=== PATIENT | female | born 1955 | race Caucasian/White ===

== ENCOUNTER 2017-03-05 12:05 | Observation (INO) | payer BC, OTHER ==
--- NOTE | 2017-03-05 12:41 | ER Document Report ---
ED Fever - General Chief Complaint: Fever Stated Complaint: FEVER Time Seen by Provider: 03/05/17 12:24 Notes: The patient is a 61-year-old female, past medical history hypertension, diabetes , presents from the urgent care center after she had a fever of 102. She was given 600 mg Motrin at the . She is complaining of mild dry cough, diffuse muscle aches and joint pain. She had a negative flu swab at the urgent care center and was sent to the ER for further evaluation due to her age. She denies shortness of breath, nausea, vomiting, abdominal pain, chest pain, urinary symptoms, rash, headache, neck stiffness or recent travel. TRAVEL OUTSIDE OF THE [place] IN LAST 30 DAYS: No - Related Data Allergies/Adverse Reactions: amoxicillin trihydrate [From Augmentin] Allergy (Intermediate, Verified 09:17) severe vaginal yeast infection zanamivir [From Relenza Diskhaler] Allergy (Intermediate, Verified 06/14/16 09: 17) breathing difficulty Potassium Clavulanate * [From Augmentin] Allergy (Verified 06/14/16 09:17) adhesive sensitivity Adverse Reaction (Uncoded 10/07/15 00:45) redness Past Medical History - General Information source: Patient - Social History Smoking Status: Unknown if Ever Smoked Family History: Reviewed & Not Pertinent, DM, Hypertension Patient has suicidal ideation: No Patient has homicidal ideation: No - Past Medical History Cardiac Medical History: Reports: Hx Hypercholesterolemia, Hx Hypertension Denies: Hx Atrial Fibrillation, Hx Congestive Heart Failure, Hx Coronary Artery Disease, Hx Heart Attack, Hx Peripheral Vascular Disease, Hx Pulmonary Embolism, Hx Heart Murmur Pulmonary Medical History: Reports: Hx Asthma, Hx Bronchitis, Hx Pneumonia Denies: Hx COPD, Hx Respiratory Failure, Hx Sleep Apnea, Hx Tuberculosis Neurological Medical History: Denies: Hx Cerebrovascular Accident, Hx Seizures Endocrine Medical History: Reports: Hx Diabetes Mellitus Type 2, Hx Hypothyroidism. Denies: Hx Graves' Disease, Hx Hyperthyroidism Renal/ Medical History: Reports: Hx Ovarian Cysts. Denies: Hx End Stage Renal Disease, Hx Kidney Stones, Hx Peritoneal Dialysis, Hx Pelvic Inflammatory Disease Malignancy Medical History: Denies: Hx Breast Cancer, Hx Cervical Cancer, Hx Lung Cancer, Hx Ovarian Cancer GI Medical History: Reports: Hx Gastroesophageal Reflux Disease. Denies: Hx Crohn's Disease, Hx Hepatitis, Hx Hiatal Hernia, Hx Irritable Bowel, Hx Liver Failure, Hx Ulcer Musculoskeltal Medical History: Denies Hx Arthritis, Denies Hx Fibromyalgia, Denies Hx Muscular Dystrophy Psychiatric Medical History: Denies: Hx Depression Traumatic Medical History: Reports: Hx Fractures - R. toe while running; L. shoulder 2010 Infectious Medical History: Denies: Hx Hepatitis Past Surgical History: Reports: Hx Bowel Surgery - Colon resection in 2006, Hx Hysterectomy, Hx Tonsillectomy, Hx Tubal Ligation. Denies: Hx Section , Hx Cholecystectomy, Hx Colostomy, Hx Gastric Bypass Surgery, Hx Herniorrhaphy , Hx Mastectomy, Hx Open Heart Surgery, Hx Pacemaker - Immunizations Hx Diphtheria, Pertussis, Tetanus Vaccination: No Hx Pneumococcal Vaccination: 09/02/08 Review of Systems - Review of Systems Notes: REVIEW OF SYSTEMS: CONSTITUTIONAL: +fevers, -chills EENT: -eye pain, -difficulty swallowing, -nasal congestion CARDIOVASCULAR:-chest pain, -syncope. RESPIRATORY: +cough, -SOB GASTROINTESTINAL: -abdominal pain, -nausea, -vomiting, -diarrhea GENITOURINARY: -dysuria, -hematuria MUSCULOSKELETAL: +myalgias and arthralgias, -back pain, -neck pain SKIN: -rash or skin lesions. HEMATOLOGIC: -easy bruising or bleeding. LYMPHATIC: -swollen, enlarged glands. NEUROLOGICAL: -altered mental status or loss of consciousness, -headache, - neurologic symptoms PSYCHIATRIC: -anxiety, -depression. ALL OTHER SYSTEMS REVIEWED AND NEGATIVE. Physical Exam - Vital signs Vitals: Temp Pulse Resp BP Pulse Ox 98.9 F 119 H 16 113/72 95 03/05/17 12:10 03/05/17 12:10 03/05/17 12:10 03/05/17 12:10 03/05/17 12:10 - Notes Notes: PHYSICAL EXAMINATION: GENERAL: Well-appearing, well-nourished and in no acute distress. HEAD: Atraumatic, normocephalic. EYES: Pupils equal round and reactive to light, extraocular movements intact, sclera anicteric, conjunctiva are normal. ENT: nares patent, oropharynx clear without exudates. Moist mucous membranes. NECK: Normal range of motion, supple without lymphadenopathy LUNGS: No respiratory distress. Crackles in right upper lobe. HEART: Tachycardic, regular rhythm ABDOMEN: Soft, nontender, normoactive bowel sounds. No guarding, no rebound. No masses appreciated. EXTREMITIES: Normal range of motion, no pitting or edema. No cyanosis. NEUROLOGICAL: Cranial nerves grossly intact. Normal speech, normal gait. Normal sensory and motor exams. PSYCH: Normal mood, normal affect. SKIN: Warm, Dry, normal turgor, no rashes or lesions noted. Course - Re-evaluation Re-evalutation: 03/05/17 13:31 Pt with severe leukocytosis, tachycardia and fever. Pt's BP is normal and she is in no respiratory distress. No recent hospitalizations. Will treat her with azithromycin and Rocephin (no history of penicillin allergies) and admit for further evaluation and treatment. 03/05/17 15:[address] Pham and will admit patient as Inpatient to Telemetry. - Vital Signs Vital signs: Temp Pulse Resp BP Pulse Ox 98.9 F 94 18 126/77 H 99 03/05/17 12:10 03/05/17 15:22 03/05/17 15:22 03/05/17 15:22 03/05/17 15:22 - Laboratory Result Diagrams: 03/05/17 12:45 03/05/17 12:45 Laboratory results interpreted by me: 03/05/17 03/05/17 03/05/17 12:45 12:45 14:49 WBC 24.2 H RBC 5.33 H MCV 75 L MCH 23.4 L MCHC 31.4 L RDW 15.3 H Seg Neuts % (Manual) 83 H Lymphocytes % (Manual) 5 L Abs Neuts (Manual) 21.3 H Abs Monocytes (Manual) 1.7 H Sodium 136.1 L Glucose 144 H Lactic Acid 2.6 H AST 41 H Alkaline Phosphatase 145 H - Diagnostic Test Radiology reviewed: Image reviewed, Reports reviewed Radiology results interpreted by me: CXR: RUL pneumonia Discharge - Discharge Clinical Impression: CAP (community acquired pneumonia) Leukocytosis Qualifiers: Leukocytosis type: unspecified Qualified Code(s): D72.829 - Elevated white blood cell count, unspecified Condition: Stable Disposition: ADMITTED INPATIENT Admitting Provider: Annabelle Singh Unit Admitted: Telemetry Referrals: CHARY ANNE FNP-C [Primary Care Provider] - Follow up as needed
[2017-03-05 13:10] LABS: HEMATOCRIT 39.8 % (36.0-47.0); HEMOGLOBIN 12.5 g/dL (12.0-15.5); HGB HCT DIFFERENCE -2.3; MEAN CORPUSCULAR HEMOGLOBIN 23.4 pg (27.0-33.4); MEAN CORPUSCULAR HGB CONC 31.4 g/dL (32.0-36.0); MEAN CORPUSCULAR VOLUME 75 fl (80-97); RED BLOOD COUNT 5.33 10^6/uL (3.72-5.28); RED CELL DISTRIBUTION WIDTH 15.3 % (11.5-14.0); WHITE BLOOD COUNT 24.2 10^3/uL (4.0-10.5)
[2017-03-05 13:13] LABS: APPEARANCE,URINE CLEAR; BILIRUBIN,URINE NEGATIVE (NEGATIVE); GLUCOSE, URINE NEGATIVE (NEGATIVE); KETONES,URINE NEGATIVE (NEGATIVE); LEUKOCYTE ESTERASE,URINE NEGATIVE (NEGATIVE); NITRITE,URINE NEGATIVE (NEGATIVE); PROTEIN,URINE NEGATIVE (NEGATIVE); URINE SPECIFIC GRAVITY 1.016; UROBILINOGEN,URINE NEGATIVE mg/dL (<2.0)
[2017-03-05 13:30] LABS: BAND NEUTROPHILS % (MANUAL) 5 % (3-5); BASOPHILS % (MANUAL) 0 % (0-2); EOSINOPHILS % (MANUAL) 0 % (0-6); LYMPHOCYTES % (MANUAL) 5 % (13-45); TOTAL CELLS COUNTED 100
[2017-03-05 13:31] LABS: ANISOCYTOSIS SLIGHT; HYPOCHROMASIA SLIGHT; MICROCYTOSIS 1+; OVALOCYTES SLIGHT; POIKILOCYTOSIS SLIGHT; TOXIC GRANULATION SLIGHT; TOXIC VACUOLATION PRESENT
[2017-03-05 13:34] LABS: ALANINE AMINOTRANSFERASE 45 U/L (9-52); ALBUMIN 4.3 g/dL (3.5-5.0); ALKALINE PHOSPHATASE 145 U/L (38-126); ANION GAP 16 (5-19); ASPARTATE AMINO TRANSFERASE 41 U/L (14-36); BILIRUBIN,DIRECT 0.3 mg/dL (0.0-0.4); BILIRUBIN,TOTAL 0.8 mg/dL (0.2-1.3); BLOOD UREA NITROGEN 16 mg/dL (7-20); CALCIUM 9.8 mg/dL (8.4-10.2); CARBON DIOXIDE 22 mmol/L (22-30); CHLORIDE 98 mmol/L (98-107); CREATINE KINASE 63 U/L (30-135); CREATININE RESULT 0.76 mg/dL (0.52-1.25); GLUCOSE 144 mg/dL (75-110); POTASSIUM 4.1 mmol/L (3.6-5.0); SODIUM 136.1 mmol/L (137-145); TOTAL PROTEIN 7.7 g/dL (6.3-8.2)
--- NOTE | 2017-03-05 13:34 | RADIOLOGY REPORT (SQ) ---
EXAM DESCRIPTION: CHEST PA/LAT COMPLETED DATE/TIME: 03/05/2017 1:03 pm REASON FOR STUDY: fever COMPARISON: 07/16/2015. TECHNIQUE: Frontal and lateral radiographic views of the chest acquired. NUMBER OF VIEWS: Two view. LIMITATIONS: None. FINDINGS: LUNGS AND PLEURA: Patchy right upper lobe airspace disease. MEDIASTINUM AND HILAR STRUCTURES: Hiatal hernia. HEART AND VASCULAR STRUCTURES: Heart normal size. No evidence for failure. BONES: No acute findings. HARDWARE: None in the chest. OTHER: No other significant finding. IMPRESSION: Findings suggesting right upper lobe pneumonia. Hiatal hernia. TECHNICAL DOCUMENTATION: JOB ID: [id number] [employer]- All Rights Reserved
[2017-03-05] MEDS ORDERED: AZITHROMYCIN INJ 500 MG VIAL IV ONE (14:06)
[2017-03-05] MEDS ORDERED: CEFTRIAXONE 1 GM/D5W RTU 50 ML IV ONE (14:06)
[2017-03-05] MEDS: NORMAL SALINE 1000 ML 1,000 ML IV PRN ×2 (15:27→16:38)
[2017-03-05] MEDS ORDERED: ALBUTEROL SULFATE 0.083% NEB 2.5 MG/3 ML AMPUL NEB PRN (16:05)
[2017-03-05] MEDS ORDERED: NORMAL SALINE 1000 ML 1,000 ML IV PRN (16:05)
[2017-03-05] MEDS ORDERED: ACETAMINOPHEN 325 MG TABLET PO PRN (16:05)
[2017-03-05] MEDS ORDERED: ONDANSETRON HCL INJ/PF 4 MG/2 ML SDV IV PRN (16:05)
[2017-03-05] MEDS ORDERED: ONDANSETRON 4 MG TAB.RAPDIS PO PRN (16:05)
[2017-03-05] MEDS ORDERED: GLUCAGON,HUMAN RECOMB 1 MG INJ IM PRN (16:11)
[2017-03-05] MEDS ORDERED: INSULIN LISPRO 100 UNIT/ML 3 ML VIAL SUBCUT PRN (16:11)
[2017-03-05] MEDS ORDERED: DEXTROSE 50%-WATER 25 GM/50 ML DISP.SYRIN IV PRN ×2 (16:11)
[2017-03-05] MEDS ORDERED: DEXTROSE 40% GEL 15 GM TUBE PO PRN ×2 (16:11)
[2017-03-05] MEDS ORDERED: FLUTICASONE NASAL SPRAY 50 MCG/SPRY 120 SPRAY/16 GM NASL PRN (16:12)
--- NOTE | 2017-03-05 16:24 | PDOC H&P ---
History of Present Illness Admission Date/PCP: 03/05/17 16:04 RACHEL REID-C Patient complains of: Fever of 104 at home History of Present Illness: JEFERSON KU is a 61 year old female has a history of diabetes who woke up this morning from sleep and noticed that she was having fevers and chills. She checked her temperature and it was 104.2F. The patient reports having a slightly productive cough of white sputum but denies any shortness of breath. She denies any chest pain or palpitations. Denies any lower extremity edema. Denies any orthopnea or PND. The patient went to urgent care and was found to have a right upper lobe pneumonia has referred for admission. Patient has not had any hypoxia and her room air saturations are normal. The patient denies any recent travel. Denies travel outside denies states. The patient denies being around anyone who has been sick. Past Medical History Cardiac Medical History: Reports: Hyperlipidema, Hypertension Denies: Atrial Fibrillation, Congestive Heart Failure, Coronary Artery Disease, Myocardial Infarction, Peripheral Vascular Disease, Pulmonary Embolism , Heart Murmur Pulmonary Medical History: Reports: Asthma, Bronchitis, Pneumonia Denies: Chronic Obstructive Pulmonary Disease (COPD), Respiratory Failure, Sleep Apnea, Tuberculosis EENT Medical History: Reports: None Neurological Medical History: Reports: None Endocrine Medical History: Reports: Diabetes Mellitus Type 2, Hypothyroidism Denies: Hyperthyroidism Renal/ Medical History: Denies: End Stage Renal Disease Malignancy Medical History: Denies: Breast Cancer, Cervical Cancer, Lung Cancer, Ovarian Cancer GI Medical History: Reports: Gastroesophageal Reflux Disease, Other - diverticulitis requiring partial colectomy. Denies: Crohn's Disease, Hepatitis, Hiatal Hernia Musculoskeltal Medical History: Denies: Arthritis, Fibromyalgia Psychiatric Medical History: Denies: Depression Hematology: Denies: Anemia, Sickle Cell Disease Infectious Medical History: Reports: None Past Surgical History Past Surgical History: Reports: Cholecystectomy, Hysterectomy, Tonsillectomy, Tubal Ligation, Other - Partial colectomy secondary to diverticulitis Denies: Amputation, Section, Colostomy, Gastric Bypass Surgery, Herniorrhaphy, Mastectomy, Pacemaker Social History Information Source: Patient Lives with: Spouse/Significant other Smoking Status: Never Smoker Frequency of Alcohol Use: None Hx Recreational Drug Use: No Drugs: None Hx Prescription Drug Abuse: No - Advance Directive Resuscitation Status: Full Code Surrogate healthcare decision maker:: Her Family History Family History: DM, Hypertension Family History: Mother is 83 alive and has hypertension and hypothyroidism. Father is 87 and alive and has coronary artery disease. Parental Family History Reviewed: Yes Children Family History Reviewed: No Sibling(s) Family History Reviewed.: No Medication/Allergy Home Medications: Amlodipine Besylate [Norvasc 10 mg Tablet] 10 mg PO DAILY 03/05/17 Fluticasone Propionate [Flonase Nasal [place] 50 Mcg/[place] 16 gm] 2 sprays NASL DAILYP PRN 03/05/17 Fluticasone Propionate [Flovent HFA 220 mcg MDI] 1 puff IH BID 03/05/17 Levothyroxine Sodium [Synthroid 0.075 mg Tablet] 0.075 mg PO DAILY 03/05/17 Metformin HCl [Metformin HCl ER] 1,500 mg PO DAILY 03/05/17 Multivitamin [Daily Multiple Vitamin] 1 tab PO DAILY 03/05/17 Allergies/Adverse Reactions: amoxicillin trihydrate [From Augmentin] Allergy (Intermediate, Verified 09:17) severe vaginal yeast infection zanamivir [From Relenza Diskhaler] Allergy (Intermediate, Verified 06/14/16 09: 17) breathing difficulty Potassium Clavulanate * [From Augmentin] Allergy (Verified 06/14/16 09:17) adhesive sensitivity Adverse Reaction (Uncoded 10/07/15 00:45) redness Review of Systems Constitutional: PRESENT: chills, fever(s). ABSENT: headache(s), night sweats, weight gain, weight loss Eyes: ABSENT: visual disturbances Ears: ABSENT: hearing changes Cardiovascular: ABSENT: chest pain, dyspnea on exertion, edema, orthropnea, palpitations Respiratory: PRESENT: as per HPI Gastrointestinal: ABSENT: abdominal pain, constipation, diarrhea, hematemesis, hematochezia, nausea, vomiting Genitourinary: ABSENT: dysuria, hematuria Musculoskeletal: ABSENT: joint swelling Integumentary: ABSENT: rash, wounds Neurological: ABSENT: abnormal gait, abnormal speech, confusion, dizziness, focal weakness, syncope Psychiatric: ABSENT: anxiety, depression Endocrine: ABSENT: cold intolerance, heat intolerance, polydipsia, polyuria Hematologic/Lymphatic: ABSENT: easy bleeding, easy bruising Physical Exam Vital Signs: Temp Pulse Resp BP Pulse Ox 98.9 F 94 18 126/77 H 99 03/05/17 12:10 03/05/17 15:22 03/05/17 15:22 03/05/17 15:22 03/05/17 15:22 General appearance: PRESENT: no acute distress, well-developed, well-nourished Head exam: PRESENT: atraumatic, normocephalic Eye exam: PRESENT: conjunctiva pink, EOMI, PERRLA. ABSENT: scleral icterus Ear exam: PRESENT: normal external ear exam Mouth exam: PRESENT: dry mucosa Neck exam: ABSENT: carotid bruit, JVD, lymphadenopathy, thyromegaly Respiratory exam: PRESENT: rhonchi - Coarse rhonchi in the right upper lobe. ABSENT: rales, wheezes Cardiovascular exam: PRESENT: RRR. ABSENT: diastolic murmur, rubs, systolic murmur Pulses: PRESENT: normal dorsalis pedis pul Vascular exam: PRESENT: normal capillary refill GI/Abdominal exam: PRESENT: normal bowel sounds, soft. ABSENT: distended, guarding, mass, organolmegaly, rebound, tenderness Rectal exam: PRESENT: deferred Extremities exam: ABSENT: calf tenderness, clubbing, pedal edema Neurological exam: PRESENT: alert, awake, oriented to person, oriented to place , oriented to time, oriented to situation, CN II-XII grossly intact. ABSENT: motor sensory deficit Psychiatric exam: PRESENT: appropriate affect Skin exam: PRESENT: dry, intact, warm. ABSENT: cyanosis, rash Results Impressions: Chest X-Ray 03/05/17 12:38 IMPRESSION: Findings suggesting right upper lobe pneumonia. Hiatal hernia. Assessment & Plan - Diagnosis (1) CAP (community acquired pneumonia) Is this a current diagnosis for this admission?: YesPlan: The patient presented with a right upper lobe pneumonia as well as fever, leukocytosis. The patient is not tachypneic or hypoxic. Treat with Rocephin and Zithromax for community-acquired pneumonia. If she does well overnight she can probably be discharged home tomorrow. Because of that we will admit as an observation (2) Asthma Is this a current diagnosis for this admission?: YesPlan: No wheezing on exam. Will give nebulizers as needed (3) Hyperlipidemia Is this a current diagnosis for this admission?: YesPlan: Has been on Lipitor. (4) Hypertension Is this a current diagnosis for this admission?: YesPlan: Continue with Norvasc. (5) Hypothyroidism Is this a current diagnosis for this admission?: YesPlan: Continue with Synthroid. (6) Prediabetes Is this a current diagnosis for this admission?: YesPlan: We will hold her Glucophage and give sliding scale insulin. - Time Time Spent: 50 to 70 Minutes - Plan Summary Plan Summary: Admit as an observation and if she does well overnight we can hopefully discharge home tomorrow on oral antibiotics.
[2017-03-05] MEDS ORDERED: LEVOTHYROXINE SODIUM 0.075 MG TABLET PO ONE (17:00)
[2017-03-06 06:30] LABS: ANION GAP 8 (5-19); BLOOD UREA NITROGEN 8 mg/dL (7-20); CALCIUM 8.6 mg/dL (8.4-10.2); CARBON DIOXIDE 22 mmol/L (22-30); CHLORIDE 110 mmol/L (98-107); CREATININE RESULT 0.61 mg/dL (0.52-1.25); GLUCOSE 85 mg/dL (75-110); POTASSIUM 4.1 mmol/L (3.6-5.0); SODIUM 140.2 mmol/L (137-145)
[2017-03-06 06:41] LABS: HEMATOCRIT 31.2 % (36.0-47.0); HGB HCT DIFFERENCE -2.7; MEAN CORPUSCULAR HEMOGLOBIN 23.4 pg (27.0-33.4); MEAN CORPUSCULAR HGB CONC 30.6 g/dL (32.0-36.0); MEAN CORPUSCULAR VOLUME 77 fl (80-97); RED BLOOD COUNT 4.08 10^6/uL (3.72-5.28); WHITE BLOOD COUNT 19.6 10^3/uL (4.0-10.5)
[2017-03-06 06:47] LABS: HEMOGLOBIN 9.5 g/dL (12.0-15.5)
[2017-03-06 09:16] VITALS: BP 127/77
[2017-03-06] MEDS ORDERED: AMLODIPINE BESYLATE 10 MG TABLET PO SCH (10:00)
[2017-03-06] MEDS ORDERED: ASPIRIN 81 MG TABLET, ENT COATED PO SCH (10:00)
[2017-03-06] MEDS ORDERED: MULTIVITAMIN TABLET PO SCH (10:00)
[2017-03-06] MEDS ORDERED: LEVOTHYROXINE SODIUM 0.075 MG TABLET PO SCH (10:00)
[2017-03-06] MEDS ORDERED: CEFTRIAXONE 1 GM/D5W RTU 50 ML IV SCH (10:00)
[2017-03-06] MEDS ORDERED: AZITHROMYCIN 500 MG in DEXTROSE 5%-WATER 250 ML IV SCH (14:00)
--- NOTE | 2017-03-06 14:55 | PDOC DISCHARGE SUMMARY ---
General - Admit/Disc Date/PCP Admission Date/Primary Care Provider: 03/05/17 16:05 NIRANJAN REID Discharge Date: 03/06/17 - Discharge Diagnosis (1) CAP (community acquired pneumonia) Is this a current diagnosis for this admission?: Yes (2) Asthma Is this a current diagnosis for this admission?: Yes (3) Hyperlipidemia Is this a current diagnosis for this admission?: Yes (4) Hypertension Is this a current diagnosis for this admission?: Yes (5) Hypothyroidism Is this a current diagnosis for this admission?: Yes (6) Prediabetes Is this a current diagnosis for this admission?: Yes - Additional Information Resuscitation Status: Full Code Discharge Diet: Diabetic Discharge Activity: Activity As Tolerated Home Medications: Amlodipine Besylate [Norvasc 10 mg Tablet] 10 mg PO DAILY 03/05/17 Fluticasone Propionate [Flonase Nasal [place] 50 Mcg/[place] 16 gm] 2 sprays NASL DAILYP PRN 03/05/17 Fluticasone Propionate [Flovent HFA 220 mcg MDI] 1 puff IH BID 03/05/17 Levothyroxine Sodium [Synthroid 0.075 mg Tablet] 0.075 mg PO DAILY 03/05/17 Metformin HCl [Metformin HCl ER] 1,500 mg PO DAILY 03/05/17 Multivitamin [Daily Multiple Vitamin] 1 tab PO DAILY 03/05/17 Aspirin [Ecotrin 81 mg EC Tablet] 81 mg PO DAILY tabec 03/06/17 Azithromycin [Zithromax 250 mg Tablet] 250 mg PO DAILY #4 tablet 03/06/17 Cefuroxime Axetil [Ceftin 500 mg Tablet] 1 tab PO BID #14 tablet 03/06/17 History of Present Illness History of Present Illness: JEFERSON KU is a 61 year old female has a history of diabetes who woke up this morning from sleep and noticed that she was having fevers and chills. She checked her temperature and it was 104.2F. The patient reports having a slightly productive cough of white sputum but denies any shortness of breath. She denies any chest pain or palpitations. Denies any lower extremity edema. Denies any orthopnea or PND. The patient went to urgent care and was found to have a right upper lobe pneumonia has referred for admission. Patient has not had any hypoxia and her room air saturations are normal. The patient denies any recent travel. Denies travel outside denies states. The patient denies being around anyone who has been sick. Hospital Course Hospital Course: 49-year-old female with asthma who presented with a cough and fever. Patient was found to have a right upper lobe pneumonia. Patient however was not hypoxic or tachypneic. She was admitted as an observation and monitored overnight. Her white blood cell decreased from 24,000 and 19,000. Spell that she could be treated as an outpatient to complete her therapy and was switched from Rocephin and Zithromax IV to Ceftin and Zithromax p.o. Her other medical problems were stable during this hospitalization. Physical Exam Vital Signs: Temp Pulse Resp BP Pulse Ox 97.6 F 80 18 127/77 H 97 03/06/17 09:15 03/06/17 09:15 03/06/17 09:15 03/06/17 09:15 03/06/17 09:15 Intake & Output 03/05/17 03/06/17 03/07/17 06:59 06:59 06:59 Intake Total 460 Balance 460 Weight 70.3 kg General appearance: PRESENT: no acute distress Eye exam: PRESENT: conjunctiva pink. ABSENT: scleral icterus Mouth exam: PRESENT: moist, tongue midline Neck exam: ABSENT: carotid bruit, JVD, lymphadenopathy, thyromegaly Respiratory exam: PRESENT: clear to auscultation branden. ABSENT: rales, rhonchi, wheezes Cardiovascular exam: PRESENT: RRR. ABSENT: diastolic murmur, rubs, systolic murmur GI/Abdominal exam: PRESENT: normal bowel sounds, soft. ABSENT: distended, guarding, mass, organolmegaly, rebound, tenderness Extremities exam: ABSENT: calf tenderness, clubbing, pedal edema Neurological exam: PRESENT: alert, awake, oriented to person, oriented to place , oriented to time, oriented to situation, CN II-XII grossly intact. ABSENT: motor sensory deficit Psychiatric exam: PRESENT: appropriate affect Skin exam: PRESENT: dry, intact, warm. ABSENT: cyanosis, rash Results Laboratory Results: 03/06/17 05:38 03/06/17 05:38 03/05/17 03/06/17 03/06/17 19:21 05:38 05:38 WBC 19.6 H RBC 4.08 Hgb 9.5 L D Hct 31.2 L MCV 77 L MCH 23.4 L MCHC 30.6 L RDW 15.0 H Plt Count 245 Sodium 140.2 Potassium 4.1 Chloride 110 H Carbon Dioxide 22 Anion Gap 8 BUN 8 Creatinine 0.61 Est GFR ( Amer) > 60 Est GFR (Non-Af Amer) > 60 Glucose 85 Lactic Acid 1.1 Calcium 8.6 Impressions: Chest X-Ray 03/05/17 12:38 IMPRESSION: Findings suggesting right upper lobe pneumonia. Hiatal hernia. Qualifiers PATEINT BEING DISCHARGED WITH ANY OF THE FOLLOWING DIAGNOSIS?: No Plan Discharge Plan: Patient is discharged home in stable condition. Follow-up with primary care in 1-2 weeks. Time Spent: Less than 30 Minutes
== END 2017-03-06 10:15 | disposition home or self-care (01) ==
LOC: ER 12:05 → UNDOADMIN 16:04 → EH 16:04 → INTOOBSV 16:05 → 5 18:16
PROVIDERS: ADMIT Internal Medicine; ATTEND Internal Medicine
DX: J18.1 Lobar pneumonia, unspecified organism (principal); J45.909 Unspecified asthma, uncomplicated; E78.5 Hyperlipidemia, unspecified; I10 Essential (primary) hypertension; E03.9 Hypothyroidism, unspecified; R73.03 Prediabetes; M79.1 Myalgia; M25.50 Pain in unspecified joint; K44.9 Diaphragmatic hernia without obstruction or gangrene; Z79.82 Long term (current) use of aspirin; Z79.899 Other long term (current) drug therapy; Z79.84 Long term (current) use of oral hypoglycemic drugs; Z90.49 Acquired absence of other specified parts of digestive tract; Z82.49 Family history of ischemic heart disease and other diseases of the circulatory system
CPT/HCPCS: 99284; 96360; 36415 ×2; 87040; 87086; 82962; 82550; 85025; 85027; 80048; 80053; 81001; 83605; 71020; G0378 ×3; S0119; J7030; J0456; J0696

== ENCOUNTER 2017-07-04 09:06 | Day surgery (SDC) | payer BC, OTHER ==
[~2017-07-04 09:06] MED LIST: EPINEPHRINE INJ 1 MG/10 ML DISP.SYRIN ONE; FLUMAZENIL INJ 0.5 MG/5 ML VIAL ONE; GLUCAGON,HUMAN RECOMB 1 MG INJ ONE; GLYCOPYRROLATE INJ 0.4 MG/2 ML VIAL ONE; NALOXONE HCL INJ/PF 0.4 MG/1 ML SDV ONE; ONDANSETRON HCL INJ/PF 4 MG/2 ML SDV ONE
[2017-07-04] MEDS: MIDAZOLAM 2 MG/2 ML INJ ONE ×2 (10:25→10:29)
[2017-07-04] MEDS: FENTANYL CITRATE INJ/PF 100 MCG/2 ML AMPUL ONE ×2 (10:27→10:35)
--- NOTE | 2017-07-04 10:59 | Operative Report ---
Operative Report DATE OF SURGERY: 07/04/17 PREOPERATIVE DIAGNOSIS: 1. Throat burning. 2. History of GERD POSTOPERATIVE DIAGNOSIS: 1. Diffuse gastric polyposis. 2. Mild irregularity of the GE junction OPERATION: 1. Esophagogastroduodenoscopy. 2. [place] antral biopsy. 3. Gastric body polypectomy SURGEON: RONI COTTON ANESTHESIA: Moderate Sedation TISSUE REMOVED OR ALTERED: Mucosal biopsies; gastric polypectomy COMPLICATIONS: None ESTIMATED BLOOD LOSS: Scant INTRAOPERATIVE FINDINGS: See below PROCEDURE: Patient was in the preop holding area then taken to the endoscopy suite where she is placed in the semirecumbent position. Monitoring devices were attached. Appropriate level of sedation was induced. Surgical plan surgical timeout conducted. The flexible adult endoscope was advanced to the hypopharynx, down the esophagus through the stomach into the duodenum. The patient tolerated this procedure well The duodenum was essentially unremarkable. The scope was brought back to the duodenum through the pylorus into the stomach. A single biopsy was taken of the gastric mucosa at the level of the antrum. There was no significant evidence of duodenitis or gastric ulcer. There were extensive gastric polyps. 1 of these was removed using a hot snare device and retrieved. These appeared to be related, fundic polyps of the benign nature. The scope was retroflexed in the stomach looking at the GE junction. There was no evidence of obvious hiatal hernia. There was however a slight irritation to the gastric cardia which had some pooled secretions. This appeared to be below the diaphragm. The scope was back to the esophagus examining it carefully. There was no evidence of tumor stricture bleeding or esophageal varix. Scope was withdrawn the patient's oropharynx. She tolerated procedure well.
--- NOTE | 2017-07-04 11:02 | PDOC DISCHARGE SUMMARY ---
Discharge Summary (SDC) - Discharge Final Diagnosis: Polyps, gastric Date of Surgery: 07/04/17 Discharge Date: 07/04/17 Condition: Good Treatment or Instructions: [facility] [place] [id number] POST ENDOSCOPY DISCHARGE INSTRUCTIONS 1. Diet: Start clear liquids that a regular diet as tolerated. 2. Resume all preoperative medications. All oral anticoagulants and aspirins can be resumed 24 hours after procedure. 3. If a polypectomy was performed some bleeding per rectum may occur. This should stop within 3 days. If not, please contact the office. 4. If you had a colonoscopy you may experience some bloating and delayed return of normal bowel function for several days, your regular bowel movement pattern should resume within a week. 5. Please contact [facility] at to make an appointment with Dr. Nj for 1 to 3 weeks following procedure. 6. If you have any questions or concerns regarding your care,treatment plan or follow up, please contact our office. Referrals: CHARY ANNE, HEARING THERAPY DIRECTOR-C [Primary Care Provider] - Discharge Diet: As Tolerated Discharge Activity: Activity As Tolerated Home Care Assistance: None Needed Report the Following to Your Physician Immediately: Shortness of Breath, Increase in Pain, Fever over 101 Degrees
[2017-07-04 12:04] VITALS: BP 118/75
== END 2017-07-04 12:00 | disposition home or self-care (01) ==
LOC: END 09:06
PROVIDERS: ATTEND Surgery
PROC: 0DB68ZX Excision of Stomach, Via Natural or Artificial Opening Endoscopic, Diagnostic (ICD-10-PCS; principal; 2017-07-04 09:45)
DX: K21.9 Gastro-esophageal reflux disease without esophagitis (principal); K31.7 Polyp of stomach and duodenum; K29.50 Unspecified chronic gastritis without bleeding; I10 Essential (primary) hypertension; E16.2 Hypoglycemia, unspecified; E55.9 Vitamin D deficiency, unspecified; E11.9 Type 2 diabetes mellitus without complications; F32.9 Major depressive disorder, single episode, unspecified; E78.1 Pure hyperglyceridemia; E03.9 Hypothyroidism, unspecified; J45.909 Unspecified asthma, uncomplicated; K76.9 Liver disease, unspecified; E78.00 Pure hypercholesterolemia, unspecified; E88.81 Metabolic syndrome and other insulin resistance; M79.1 Myalgia; Z88.0 Allergy status to penicillin; Z79.899 Other long term (current) drug therapy; Z79.82 Long term (current) use of aspirin; Z79.51 Long term (current) use of inhaled steroids; Z79.84 Long term (current) use of oral hypoglycemic drugs; K62.4 Stenosis of anus and rectum; Z90.49 Acquired absence of other specified parts of digestive tract
CPT/HCPCS: 43251; 82962; 88342 ×2; 88305 ×2; J2250; J3010; 43239; J0171; J1610; J2310; J2405; J3490

== ENCOUNTER 2018-07-13 17:06 | Emergency (ER) | payer BC, OTHER ==
--- NOTE | 2018-07-13 17:39 | ER Document Report ---
ED Medical Screen (RME) - General Chief Complaint: High Blood Pressure Stated Complaint: BLOOD PRESSURE CONCERN Time Seen by Provider: 07/13/18 17:37 Mode of Arrival: Wheelchair Information source: Patient, Relative TRAVEL OUTSIDE OF THE [place] IN LAST 30 DAYS: No - HPI Patient complains to provider of: elevated BP Onset: Other - pt. states she hash/o HTN and has elevated BP readings for the past several days. Denies CP, SOB - Related Data Allergies/Adverse Reactions: amoxicillin trihydrate [From Augmentin] Allergy (Intermediate, Verified 09:17) severe vaginal yeast infection zanamivir [From Relenza Diskhaler] Allergy (Intermediate, Verified 07/04/17 09: 17) breathing difficulty Potassium Clavulanate * [From Augmentin] Allergy (Verified 07/04/17 09:17) adhesive sensitivity Adverse Reaction (Uncoded 10/07/15 00:45) redness Past Medical History - Past Medical History Cardiac Medical History: Reports: Hx Hypercholesterolemia, Hx Hypertension Denies: Hx Atrial Fibrillation, Hx Congestive Heart Failure, Hx Coronary Artery Disease, Hx Heart Attack, Hx Peripheral Vascular Disease, Hx Pulmonary Embolism, Hx Heart Murmur Pulmonary Medical History: Reports: Hx Asthma, Hx Bronchitis, Hx Pneumonia Denies: Hx COPD, Hx Respiratory Failure, Hx Sleep Apnea, Hx Tuberculosis Neurological Medical History: Denies: Hx Cerebrovascular Accident, Hx Seizures Endocrine Medical History: Reports: Hx Diabetes Mellitus Type 2, Hx Hypothyroidism. Denies: Hx Graves' Disease, Hx Hyperthyroidism Renal/ Medical History: Reports: Hx Ovarian Cysts. Denies: Hx End Stage Renal Disease, Hx Kidney Stones, Hx Peritoneal Dialysis, Hx Pelvic Inflammatory Disease Malignancy Medical History: Denies: Hx Breast Cancer, Hx Cervical Cancer, Hx Lung Cancer, Hx Ovarian Cancer GI Medical History: Reports: Hx Gastroesophageal Reflux Disease. Denies: Hx Crohn's Disease, Hx Hepatitis, Hx Hiatal Hernia, Hx Irritable Bowel, Hx Liver Failure, Hx Pancreatitis, Hx Ulcer Musculoskeltal Medical History: Denies Hx Arthritis, Denies Hx Fibromyalgia, Denies Hx Muscular Dystrophy Psychiatric Medical History: Denies: Hx Depression Traumatic Medical History: Reports: Hx Fractures - R. toe while running; L. shoulder 2010 Infectious Medical History: Denies: Hx Hepatitis Past Surgical History: Reports: Hx Bowel Surgery - Colon resection in 2006, Hx Cholecystectomy, Hx Hysterectomy, Hx Tonsillectomy, Hx Tubal Ligation, Other - Partial colectomy secondary to diverticulitis. Denies: Hx Section, Hx Colostomy, Hx Gastric Bypass Surgery, Hx Herniorrhaphy, Hx Mastectomy, Hx Open Heart Surgery, Hx Pacemaker - Immunizations Hx Diphtheria, Pertussis, Tetanus Vaccination: No Physical Exam - Vital signs Vitals: Temp Pulse Resp BP Pulse Ox 97.6 F 93 18 159/89 H 99 07/13/18 17:11 07/13/18 17:11 07/13/18 17:11 07/13/18 17:11 07/13/18 17:11 Course - Vital Signs Vital signs: Temp Pulse Resp BP Pulse Ox 97.6 F 93 18 159/89 H 99 07/13/18 17:11 07/13/18 17:11 07/13/18 17:11 07/13/18 17:11 07/13/18 17:11 Doctor's Discharge - Discharge Referrals: CHARY ANNE, WAREHOUSE ATTENDANT-C [Primary Care Provider] - Follow up as needed
--- NOTE | 2018-07-13 17:49 | EKG REPORT ---
SEVERITY:- NORMAL ECG - SINUS RHYTHM : Confirmed by: Aleksey Will MD 13-Jul-2018 17:48:16
[2018-07-13 17:59] LABS: ABSOLUTE BASOPHILS # (AUTO) 0.1 10^3/uL (0.0-0.2); ABSOLUTE EOSINOPHILS # (AUTO) 0.5 10^3/uL (0.0-0.6); ABSOLUTE LYMPHOCYTES (AUTO) 6.1 10^3/uL (0.5-4.7); ABSOLUTE MONOCYTES (AUTO) 1.4 10^3/uL (0.1-1.4); BASOPHILS % (AUTO) 0.9 % (0-2); EOSINOPHILS % (AUTO) 3.3 % (0-6); HEMATOCRIT 41.7 % (36.0-47.0); HEMOGLOBIN 13.3 g/dL (12.0-15.5); LYMPHOCYTES % (AUTO) 37.7 % (13-45); MEAN CORPUSCULAR HEMOGLOBIN 22.7 pg (27.0-33.4); MEAN CORPUSCULAR HGB CONC 31.9 g/dL (32.0-36.0); MEAN CORPUSCULAR VOLUME 71 fl (80-97); MONOCYTES % (AUTO) 8.7 % (3-13); PLATELET COUNT 469 10^3/uL (150-450); RED BLOOD COUNT 5.85 10^6/uL (3.72-5.28); RED CELL DISTRIBUTION WIDTH 17.6 % (11.5-14.0); SEGMENTED NEUTROPHILS % (AUTO) 49.4 % (42-78); TOTAL CELLS COUNTED % (AUTO) 100 %; WHITE BLOOD COUNT 16.2 10^3/uL (4.0-10.5)
[2018-07-13 18:02] LABS: APPEARANCE,URINE CLEAR; BILIRUBIN,URINE NEGATIVE (NEGATIVE); COLOR,URINE COLORLESS; GLUCOSE, URINE NEGATIVE (NEGATIVE); KETONES,URINE NEGATIVE (NEGATIVE); LEUKOCYTE ESTERASE,URINE NEGATIVE (NEGATIVE); NITRITE,URINE NEGATIVE (NEGATIVE); PROTEIN,URINE NEGATIVE (NEGATIVE); URINE SPECIFIC GRAVITY 1.003; UROBILINOGEN,URINE NEGATIVE mg/dL (<2.0)
[2018-07-13 18:13] LABS: ALANINE AMINOTRANSFERASE 27 U/L (9-52); ALBUMIN 4.8 g/dL (3.5-5.0); ALKALINE PHOSPHATASE 119 U/L (38-126); ANION GAP 16 (5-19); ASPARTATE AMINO TRANSFERASE 21 U/L (14-36); BILIRUBIN,DIRECT 0.3 mg/dL (0.0-0.4); BILIRUBIN,TOTAL 0.5 mg/dL (0.2-1.3); BLOOD UREA NITROGEN 18 mg/dL (7-20); CALCIUM 10.2 mg/dL (8.4-10.2); CARBON DIOXIDE 28 mmol/L (22-30); CHLORIDE 98 mmol/L (98-107); GLUCOSE 87 mg/dL (75-110); POTASSIUM 4.5 mmol/L (3.6-5.0); SODIUM 142.4 mmol/L (137-145)
[2018-07-13] MEDS ORDERED: FAMOTIDINE 20 MG TABLET PO ONE (19:07)
[2018-07-13] MEDS ORDERED: MAG HYDROX/AL HYDROX/SIMETH SUSP 30 ML UDCUP PO ONE (19:07)
[2018-07-13] MEDS ORDERED: METOCLOPRAMIDE HCL INJ/PF 10 MG/2 ML SDV IV ONE (19:07)
[2018-07-13] MEDS ORDERED: LIDOCAINE 2% VISCOUS SOLN 20 ML UDCUP PO ONE (19:07)
--- NOTE | 2018-07-13 19:13 | ER Document Report ---
ED General - General Chief Complaint: High Blood Pressure Stated Complaint: BLOOD PRESSURE CONCERN Time Seen by Provider: 07/13/18 17:37 Mode of Arrival: Wheelchair Notes: Patient is a 63-year-old female with a past medical history of hypertension who presents with multiple concerns. The patient's first concern is that she has a global, throbbing, moderate to severe headache that started approximately 10 hours to arrival and has progressively worsened since onset. Patient describes that she has had similar headaches in the past when her blood pressure has become elevated. Denies any associated weakness, numbness, confusion, photophobia or phonophobia. She also complains that prior to coming the hospital she developed a throbbing, aching pain to the right side of her chest that has spontaneously resolved. Denies any cardiac history. No associated shortness of breath, nausea or diaphoresis. She also reports that she is concerned that her blood pressure has been high. She also reports that she has had 2 weeks of intermittent epigastric abdominal discomfort that comes and goes. Worse with food consumption particularly things like tomato sauce. She is status post cholecystectomy. She has not seen her primary care doctor regarding her multitude of concerns. TRAVEL OUTSIDE OF THE [place] IN LAST 30 DAYS: No - Related Data Allergies/Adverse Reactions: amoxicillin trihydrate [From Augmentin] Allergy (Intermediate, Verified 09:17) severe vaginal yeast infection zanamivir [From Relenza Diskhaler] Allergy (Intermediate, Verified 07/04/17 09: 17) breathing difficulty Potassium Clavulanate * [From Augmentin] Allergy (Verified 07/04/17 09:17) adhesive sensitivity Adverse Reaction (Uncoded 10/07/15 00:45) redness Past Medical History - General Information source: Patient, Relative - Social History Smoking Status: Never Smoker Frequency of alcohol use: None Drug Abuse: None Lives with: Spouse/Significant other Family History: DM, Hypertension Patient has suicidal ideation: No Patient has homicidal ideation: No - Past Medical History Cardiac Medical History: Reports: Hx Hypercholesterolemia, Hx Hypertension Denies: Hx Atrial Fibrillation, Hx Congestive Heart Failure, Hx Coronary Artery Disease, Hx Heart Attack, Hx Peripheral Vascular Disease, Hx Pulmonary Embolism, Hx Heart Murmur Pulmonary Medical History: Reports: Hx Asthma, Hx Bronchitis, Hx Pneumonia Denies: Hx COPD, Hx Respiratory Failure, Hx Sleep Apnea, Hx Tuberculosis Neurological Medical History: Denies: Hx Cerebrovascular Accident, Hx Seizures Endocrine Medical History: Reports: Hx Diabetes Mellitus Type 2, Hx Hypothyroidism. Denies: Hx Graves' Disease, Hx Hyperthyroidism Renal/ Medical History: Reports: Hx Ovarian Cysts. Denies: Hx End Stage Renal Disease, Hx Kidney Stones, Hx Peritoneal Dialysis, Hx Pelvic Inflammatory Disease Malignancy Medical History: Denies: Hx Breast Cancer, Hx Cervical Cancer, Hx Lung Cancer, Hx Ovarian Cancer GI Medical History: Reports: Hx Gastroesophageal Reflux Disease. Denies: Hx Crohn's Disease, Hx Hepatitis, Hx Hiatal Hernia, Hx Irritable Bowel, Hx Liver Failure, Hx Pancreatitis, Hx Ulcer Musculoskeletal Medical History: Denies Hx Arthritis, Denies Hx Fibromyalgia, Denies Hx Muscular Dystrophy Psychiatric Medical History: Denies: Hx Depression Traumatic Medical History: Reports: Hx Fractures - R. toe while running; L. shoulder 2010 Infectious Medical History: Denies: Hx Hepatitis Past Surgical History: Reports: Hx Bowel Surgery - Colon resection in 2006, Hx Cholecystectomy, Hx Hysterectomy, Hx Tonsillectomy, Hx Tubal Ligation, Other - Partial colectomy secondary to diverticulitis. Denies: Hx Section, Hx Colostomy, Hx Gastric Bypass Surgery, Hx Herniorrhaphy, Hx Mastectomy, Hx Open Heart Surgery, Hx Pacemaker - Immunizations Hx Diphtheria, Pertussis, Tetanus Vaccination: No Hx Pneumococcal Vaccination: 09/02/08 Review of Systems - Review of Systems Notes: Constitutional: Negative for fever. HENT: Negative for sore throat. Eyes: Negative for visual changes. Cardiovascular: Positive for chest pain. Respiratory: Negative for shortness of breath. Gastrointestinal: Positive for epigastric abdominal pain nausea Genitourinary: Negative for dysuria. Musculoskeletal: Negative for back pain. Skin: Negative for rash. Neurological: Positive for headache 10 point ROS negative except as marked above and in HPI. Physical Exam - Vital signs Vitals: Temp Pulse Resp BP Pulse Ox 97.6 F 93 18 159/89 H 99 07/13/18 17:11 07/13/18 17:11 07/13/18 17:11 07/13/18 17:11 07/13/18 17:11 Interpretation: Hypertensive Notes: PHYSICAL EXAMINATION: GENERAL: Well-appearing, well-nourished and in no acute distress. HEAD: Atraumatic, normocephalic. EYES: Pupils equal round and reactive to light, extraocular movements intact, sclera anicteric, conjunctiva are normal. ENT: nares patent, oropharynx clear without exudates. Moist mucous membranes. NECK: Normal range of motion, supple without lymphadenopathy LUNGS: Breath sounds clear to auscultation bilaterally and equal. No wheezes rales or rhonchi. HEART: Regular rate and rhythm without murmurs ABDOMEN: Soft, nontender, normoactive bowel sounds. No guarding, no rebound. No masses appreciated. EXTREMITIES: Normal range of motion, no pitting or edema. No cyanosis. NEUROLOGICAL: Face symmetric. Tongue protrudes midline. Extraocular motions intact. Pupils are 2 mm and equally reactive. Normal speech, normal gait. 5 out of 5 strength in both the distal and proximal upper and lower extremities bilaterally. Sensation is grossly intact throughout. Finger to nose testing normal. Pronator drift normal. PSYCH: Normal mood, normal affect. SKIN: Warm, Dry, normal turgor, no rashes or lesions noted. Course - Re-evaluation Re-evalutation: 07/13/18 19:09 Patient presents with multiple concerns: 1.) Headache: Presentation of a headache that appears to be most consistent with tension versus migrainous type headache. Headache was not maximal in onset , patient has no focal neurologic deficits, no nuchal rigidity, vital signs within normal limits, no papilledema, and patient is overall well in appearance. Based on clinical history and examination I do not suspect an acute subarachnoid hemorrhage, dural venous sinus thrombosis, acute meningitis, or intercranial mass. Given my low clinical suspicion for any acute life- threatening etiology, I do not feel advanced neuro imaging testing is indicated at this time. Patient had resolution of her headache after receiving IV metoclopramide. 2.) Epigastric abdominal pain: This has been ongoing intermittently for the past 1-2 weeks and is not new or different tonight. Patient presents with epigastric abdominal pain with associated reflux symptoms most consistent with likely gastritis. Patient has no focal abdominal tenderness on examination. Patient has a remote history of cholecystectomy removing biliary pathology from diagnostic consideration. Lipase is normal. No LFT changes. Based on history and exam, I do not suspect ACS, pulmonary embolus, SBO, mesenteric ischemia, acute pancreatitis, biliary pathology, or an abdominal aortic dissection. Patient has had improvement of symptoms here with a GI cocktail. 3.) Essential hypertension: Patient's blood pressure is mildly elevated has been followed by her primary care doctor and I have encouraged her to continue to follow with them. 4.) Right-sided chest discomfort now resolved: Low clinical suspicion for ACS given clinical history, exam, EKG without ST elevations or depressions, and negative initial troponin. HEART score less than or equal to 3. 2 troponins negative. PE also seems unlikely given clinical history, absence of tachycardia or dyspnea. Wells score 0 CXR without evidence of pneumothorax or pneumonia. No widened mediastinum. Aortic dissection also seems unlikely given history, symmetric pulses, CXR, and vitals. Given overall low clinical suspicion for an acute cardiac event or any alternative lites or any pathology in the setting of her chest discomfort I advised outpatient follow-up and stress testing. Patient is also noted to incidentally have a leukocytosis which is apparently baseline and is actually quite a bit lower than her previous checks. I do not believe this is of any specific clinical concern today. At this time will discharge with return precautions and follow-up recommendations. Verbal discharge instructions given a the bedside and opportunity for questions given. Medication warnings reviewed. Patient is in agreement with this plan and has verbalized understanding of return precautions and the need for primary care follow-up in the next 24-72 hours. - Vital Signs Vital signs: Temp Pulse Resp BP Pulse Ox 98.5 F 93 11 L 120/82 96 07/13/18 21:36 07/13/18 17:11 07/13/18 21:36 07/13/18 21:36 07/13/18 21:36 - Laboratory Result Diagrams: 07/13/18 17:49 07/13/18 17:49 Laboratory results interpreted by me: 07/13/18 17:49 WBC 16.2 H RBC 5.85 H MCV 71 L MCH 22.7 L MCHC 31.9 L RDW 17.6 H Plt Count 469 H Absolute Lymphocytes 6.1 H - Diagnostic Test Radiology reviewed: Image reviewed, Reports reviewed Radiology results interpreted by me: 07/13/18 19:12 Chest x-ray: No acute infiltrate or pneumothorax - EKG Interpretation by Me Additional EKG results interpreted by me: 07/13/18 19:12 Sinus rhythm. Rate 78. No ST elevations or depressions. QTC is 442. Discharge - Discharge Clinical Impression: Chest discomfort, Essential hypertension, Epigastric abdominal pain Acute headache Qualifiers: Headache type: tension-type Intractability: not intractable Qualified Code(s): G44.209 - Tension-type headache, unspecified, not intractable Leukocytosis Qualifiers: Leukocytosis type: unspecified Qualified Code(s): D72.829 - Elevated white blood cell count, unspecified Gastritis Qualifiers: Gastritis type: unspecified gastritis Chronicity: acute Gastritis bleeding: presence of bleeding unspecified Qualified Code(s): K29.00 - Acute gastritis without bleeding Condition: Good Disposition: HOME, SELF-CARE Additional Instructions: Abdominal pain Your symptoms appear to be most consistent with stomach or upper intestinal irritation. Please begin taking famotidine 40 mg in the morning and 40 mg at night. Please also take Carafate as prescribed. You may also take medicine such as Pepto-Bismol or Tums to assist with your pain. Please return to emergency department immediately if you have worsening of your pain, shortness of breath, vomiting, become unable to exert yourself due to pain or difficulty breathing, you pass out, or have any pain that radiates into your arms, jaw, or back. Please also return if you have any additional symptoms that are concerning to you. As we have discussed, the most important thing is lifestyle changes. You need to avoid smoking, sodas, tea, coffee, alcohol, spicy foods, and acidic foods such as citrus fruits, tomato based products, berries, and most fruit juices. High Blood Pressure You were seen today for blood pressure that was high. This is a long-term risk factor for multiple medical problems including heart attack and stroke. However, the blood pressure in of itself will not cause you to have an acute stroke or heart attack over the course of just several days or weeks. You need to have a gradual reduction of your blood pressure back to normal levels over the next several months in conjunction with your primary care physician. Return if you develop headache, weakness, numbness, chest pain, pass out, or have any other symptoms that are concerning to you. Chest pain: You were seen today for chest pain. The exact cause of your pain is unclear. However, based on your cardiac enzyme testing, chest x-ray, and EKG it does not appear that it is from an immediately life-threatening cause at this time. Although your testing here is normal is critical that you follow-up with your primary care physician for continued evaluation of this chest pain and possible stress testing. I recommended you see your physician within the next 24-48 hours to be evaluated for consideration of a stress test. Please return to emergency department immediately if you have worsening of your chest pain, shortness of breath, vomiting, become unable to exert yourself due to pain or difficulty breathing, you pass out, or have any pain that radiates into your arms, jaw, or back. Please also return if you have any additional symptoms that are concerning to you. Prescriptions: Famotidine 40 mg PO BID #60 tablet Sucralfate [Carafate 1 gm Tablet] 1 gm PO ACHS #120 tablet Referrals: CHARY ANNE, RACHEL-C [COMMUNITY BASED STAFF] - Follow up in 3-5 days
[2018-07-13 19:20] LABS: LIPASE 128.2 U/L (23-300)
--- NOTE | 2018-07-13 20:05 | RADIOLOGY REPORT (SQ) ---
EXAM DESCRIPTION: CHEST SINGLE VIEW COMPLETED DATE/TIME: 07/13/2018 7:32 pm REASON FOR STUDY: Chest pain COMPARISON: 03/05/2017 and earlier EXAM PARAMETERS: NUMBER OF VIEWS: One view. TECHNIQUE: Single frontal radiographic view of the chest acquired. RADIATION DOSE: NA LIMITATIONS: None. FINDINGS: LUNGS AND PLEURA: No opacities, masses or pneumothorax. No pleural effusion. MEDIASTINUM AND HILAR STRUCTURES: No masses. Contour normal. HEART AND VASCULAR STRUCTURES: Heart normal in size. Normal vasculature. BONES: No acute findings. HARDWARE: None in the chest. OTHER: No other significant finding. IMPRESSION: NO ACUTE RADIOGRAPHIC FINDING IN THE CHEST. TECHNICAL DOCUMENTATION: JOB ID: [id number] [employer]- All Rights Reserved Reading location - IP/workstation name: [email or web address]
[2018-07-13 21:40] VITALS: BP 120/82
== END 2018-07-13 21:40 | disposition home or self-care (01) ==
LOC: ER 17:06
DX: K29.00 Acute gastritis without bleeding (principal); I10 Essential (primary) hypertension; G44.209 Tension-type headache, unspecified, not intractable; D72.829 Elevated white blood cell count, unspecified; R11.0 Nausea; R07.9 Chest pain, unspecified; R10.13 Epigastric pain; E11.9 Type 2 diabetes mellitus without complications; J45.909 Unspecified asthma, uncomplicated; Z90.49 Acquired absence of other specified parts of digestive tract; Z88.0 Allergy status to penicillin; Z88.8 Allergy status to other drugs, medicaments and biological substances; Z87.19 Personal history of other diseases of the digestive system
CPT/HCPCS: 93005; 99284; 96374; 36415; 83690; 85025; 80053; 81001; 84484; 71045; 93010; J3490; J2765

== ENCOUNTER → 2018-08-15 | Outpatient (CLI) | payer BC, OTHER ==
--- NOTE | 2018-08-15 17:01 | WOMENS IMAGING REPORT ---
EXAM DESCRIPTION: BILAT SCREENING MAMMO W/CAD COMPLETED DATE/TIME: 08/15/2018 4:19 pm REASON FOR STUDY: SCREENING MAMMO Z12.31 ENCNTR SCREEN MAMMOGRAM FOR MALIGNANT NEOPLASM OF TEJAS COMPARISON: Multiple since 2012 TECHNIQUE: Standard craniocaudal and mediolateral oblique views of each breast recorded using digita l acquisition. LIMITATIONS: None. FINDINGS: No masses, calcifications or architectural distortion. No areas of suspicion. Read with the assistance of CAD. .[facility] - R2 Cenova Version 1.3 .[facility] - R2 Cenova Version 1.3 .[facility] - R2 Cenova Version 2.4 .[facility] - R2 Cenova Version 2.4 .[facility] - R2 [employer] Version 9.2 IMPRESSION: NORMAL MAMMOGRAM. BIRADS 1. BREAST DENSITY: b. There are scattered areas of fibroglandular density. BIRAD: 1 NEGATIVE RECOMMENDATION: ROUTINE SCREENING COMMENT: The patient has been notified of the results by letter per MQSA requirements. Additional no tification policies are in place for contacting patient with suspicious or incomplete findings. Quality ID #[id number]: The [employer] recommends an annual screening mammogram for women aged 40 years or over. This facility utilizes a reminder system to ensure that all patients receive reminder letters, and/or direct phone calls for appointments. This includes reminders for routine scr eening mammograms, diagnostic mammograms, or other Breast Imaging Interventions when appropriate. Th is patient will be placed in the appropriate reminder system. The [employer] (ACR) has developed recommendations for screening MRI of the breast s in certain patient populations, to be used in conjunction with mammography. Breast MRI surveillanc e may be appropriate for women with more than 20% lifetime risk of developing breast cancer as deter mined by genetic testing, significant family history of the disease, or history of mantle radiation f or Hodgkins Disease. ACR Practice Guidelines 2008. TECHNICAL DOCUMENTATION: FINDING NUMBER: (1) ASSESSMENT: (1) JOB ID: [id number] [employer]- All Rights Reserved Reading location - IP/workstation name: [email or web address]
== END ==
LOC: WI 14:24
PROVIDERS: ATTEND Family Medicine
DX: Z12.31 Encounter for screening mammogram for malignant neoplasm of breast (principal)
CPT/HCPCS: 77067

== ENCOUNTER 2018-10-31 06:30 | Day surgery (SDC) | payer BC, OTHER ==
[2018-10-31] MEDS ORDERED: PROPOFOL INJ 200 MG/20 ML VIAL IV ONE (06:51)
[2018-10-31] MEDS ORDERED: EPHEDRINE SULFATE INJ 50 MG/1 ML AMPULE ONE (06:51)
[2018-10-31] MEDS ORDERED: ALBUTEROL SULFATE 0.083% NEB 2.5 MG/3 ML AMPUL NEB ONE (07:52)
[2018-10-31] MEDS ORDERED: RINGERS SOLUTION,LACTATED 500 ML IV PRN (08:08)
[2018-10-31] MEDS ORDERED: FENTANYL CITRATE INJ/PF 100 MCG/2 ML AMPUL IV PRN ×3 (08:45)
[2018-10-31] MEDS ORDERED: DIPHENHYDRAMINE HCL 50 MG/ML VIAL IV PRN (08:45)
[2018-10-31] MEDS ORDERED: MORPHINE SULFATE 10 MG/ML INJ IV PRN (08:45)
[2018-10-31] MEDS ORDERED: PROMETHAZINE HCL INJ 25 MG/1 ML VIAL IV PRN ×2 (08:45)
[2018-10-31] MEDS ORDERED: MEPERIDINE HCL/PF INJ 25 MG/1 ML DISP.SYRIN IV PRN (08:45)
[2018-10-31 09:40] VITALS: BP 120/74
--- NOTE | 2018-10-31 12:31 | Operative Report ---
Operative Report DATE OF SURGERY: 10/31/18 Operative Report: The risks, benefits and alternatives of the procedure including the risk of bleeding, perforation requiring surgery have been explained to the patient in detail and informed consent has been obtained. Patient is taken back to the operating room and placed in a left, lateral decubital position. Timeout was called. Propofol medication is administered. Rectal examination is done which did not reveal any masses, tears or fissures. An Olympus videoscope was introduced into the patient's rectum. The scope was then carefully advanced all the way to the cecum. The cecum was identified by the usual anatomical landmarks of the ileocecal valve as well as the appendiceal office. Photodocumentation is obtained. The scope was then sequentially pulled back via the various segments of the colon including the ascending colon, hepatic flexure, transverse colon, splenic flexure, descending colon and finally into the rectosigmoid portions of the colon. Retroflexion maneuver was performed. The risks benefits and alternatives of the procedure explained to the patient in detail and informed consent is obtained.A GIF Olympus video scope was inserted into the patient's mouth and hypopharynx, the esophagus is identified intubated and insufflated, the scope was then advanced through the esophagus stomach and duodenum ,retroflexion maneuver is done, the esophagus stomach and first and second portions of the duodenum examined. PREOPERATIVE DIAGNOSIS: Iron deficiency anemia rule out GI bleeding POSTOPERATIVE DIAGNOSIS: Inflammation noted on the right-hand side of the colon status post biopsy. Diverticulosis without any evidence of diverticulitis. Internal hemorrhoids. Gastritis status post biopsy rule out Helicobacter pylori. Duodenitis status post biopsy rule out celiac sprue. Hiatal hernia. No evidence of GI bleeding throughout the GI tract OPERATION: Colonoscopy with biopsy. EGD with biopsy SURGEON: DEXTER FERREIRA ANESTHESIA: LMAC TISSUE REMOVED OR ALTERED: As noted above. COMPLICATIONS: None. ESTIMATED BLOOD LOSS: None. INTRAOPERATIVE FINDINGS: As noted above. PROCEDURE: Patient tolerated the procedure well. No immediate postprocedure complications are noted. Patient discharged in good condition. Discharge date 10/31/2018. Discharge diet: Regular. Discharge activity: Regular. 2-3-week follow-up to discuss findings. Patient is instructed to call the office or proceed to the emergency room should there be any further problems or questions. Wait on the pathology.
--- NOTE | 2018-10-31 22:05 | EKG REPORT ---
SEVERITY:- NORMAL ECG - SINUS RHYTHM : Confirmed by: Hussein Miguel 31-Oct-2018 22:04:36
== END 2018-10-31 09:50 | disposition home or self-care (01) ==
LOC: OROUT 06:30
PROVIDERS: ATTEND Internal Medicine Gastroenterology
DX: K52.9 Noninfective gastroenteritis and colitis, unspecified (principal); K57.30 Diverticulosis of large intestine without perforation or abscess without bleeding; K64.8 Other hemorrhoids; K29.80 Duodenitis without bleeding; K29.50 Unspecified chronic gastritis without bleeding; K44.9 Diaphragmatic hernia without obstruction or gangrene; D50.0 Iron deficiency anemia secondary to blood loss (chronic); I10 Essential (primary) hypertension; E78.5 Hyperlipidemia, unspecified; E07.9 Disorder of thyroid, unspecified; J45.909 Unspecified asthma, uncomplicated; Z79.899 Other long term (current) drug therapy; Z79.51 Long term (current) use of inhaled steroids; Z79.82 Long term (current) use of aspirin; Z79.84 Long term (current) use of oral hypoglycemic drugs; Z88.0 Allergy status to penicillin; Z88.1 Allergy status to other antibiotic agents
CPT/HCPCS: 43239; 45380; 82962; 88305 ×2; 93005; 93010; J2704; 813; J3490

== ENCOUNTER → 2018-12-24 | Outpatient (CLI) | payer BC, OTHER ==
--- NOTE | 2018-12-24 14:07 | RADIOLOGY REPORT (SQ) ---
EXAM DESCRIPTION: UGI SERIES COMPLETED DATE/TIME: 12/24/2018 10:28 am REASON FOR STUDY: HIATAL HERNIA (K44.9), GERD (K21.9) K44.9 DIAPHRAGMATIC HERNIA WITHOUT OBSTRUCTIO N OR GANGRENE COMPARISON: AP chest 07/13/2018 CT abdomen pelvis 07/16/2015 TECHNIQUE: Under fluoroscopic guidance, patient ingested effervescent granules followed by thick and thin barium. Fluoroscopic spot images and routine radiographic images acquired and stored on PACS. 12 MM BARIUM TABLET GIVEN: Yes. No significant delay in passage. LIMITATIONS: None. FLUOROSCOPY TIME: FLUORO TIME: 1.9 minutes 17 digital fluoroscopic images saved to PACS. FINDINGS: NEUROMUSCULAR COORDINATION OF SWALLOW: Normal. No aspiration. ESOPHAGEAL MOTILITY: Normal peristalsis. No esophageal spasm. ESOPHAGEAL MUCOSA: Normal mucosa without masses or ulceration. GASTRO-ESOPHAGEAL JUNCTION: Moderate size retrocardiac hiatal hernia, containing the stomach fundus a nd GE junction. There is gastroesophageal reflux to the cervical esophagus. No distal esophageal st ricture or Schatzki's ring. STOMACH: Normal without masses or ulcerations. GASTRIC OUTLET: No delay in emptying. Normal pylorus. DUODENAL BULB: Normal distention. No spasm or ulceration. DUODENUM: Mucosa normal. No extrinsic masses or malrotation. PROXIMAL SMALL BOWEL: Mucosa normal. No extrinsic masses or malrotation. NON-GI TRACT STRUCTURES: No significant finding. OTHER: No other significant finding. IMPRESSION: Moderate size retrocardiac hiatal hernia containing the stomach fundus and GE junction. Gastroesophageal reflux to the cervical esophagus No Schatzki's ring or distal esophageal stricture. No gastric outlet obstruction. Stomach and duode num are unremarkable. COMMENT: Quality ID 145: Final reports for procedures using fluoroscopy that document radiation exp osure indices, or exposure time and number of fluorographic images (if radiation exposure indices are not available) TECHNICAL DOCUMENTATION: JOB ID: [id number] [employer]- All Rights Reserved Reading location - IP/workstation name: [email or web address]
== END ==
LOC: RAD 09:41
PROVIDERS: ATTEND Surgery
DX: K44.9 Diaphragmatic hernia without obstruction or gangrene (principal)
CPT/HCPCS: 74247

== ENCOUNTER → 2019-01-06 | Day surgery (SDC) | payer BC, OTHER ==
[~2019-01-06] MED LIST changes: +DIPHENHYDRAMINE HCL 50 MG/ML VIAL ONE; -EPINEPHRINE INJ 1 MG/10 ML DISP.SYRIN ONE; -FLUMAZENIL INJ 0.5 MG/5 ML VIAL ONE; -GLUCAGON,HUMAN RECOMB 1 MG INJ ONE; -GLYCOPYRROLATE INJ 0.4 MG/2 ML VIAL ONE; +LIDOCAINE 2% JELLY 5 ML TUBE ONE; -NALOXONE HCL INJ/PF 0.4 MG/1 ML SDV ONE
== END ==
LOC: END 07:50
PROVIDERS: ATTEND Surgery
DX: K44.9 Diaphragmatic hernia without obstruction or gangrene (principal)
CPT/HCPCS: 91010; J1200; J2405

== ENCOUNTER 2019-02-05 08:35 | Inpatient (IN) | payer BC, OTHER ==
[2019-01-30 10:19] LABS: HEMATOCRIT 43.5 % (36.0-47.0); HEMOGLOBIN 14.6 g/dL (12.0-15.5); MEAN CORPUSCULAR HEMOGLOBIN 28.7 pg (27.0-33.4); MEAN CORPUSCULAR HGB CONC 33.6 g/dL (32.0-36.0); MEAN CORPUSCULAR VOLUME 86 fl (80-97); PLATELET COUNT 285 10^3/uL (150-450); RED BLOOD COUNT 5.09 10^6/uL (3.72-5.28); RED CELL DISTRIBUTION WIDTH 13.5 % (11.5-14.0)
[2019-01-30 10:41] LABS: ANION GAP 13 (5-19); BLOOD UREA NITROGEN 14 mg/dL (7-20); CALCIUM 10.1 mg/dL (8.4-10.2); CARBON DIOXIDE 26 mmol/L (22-30); CHLORIDE 102 mmol/L (98-107); GLUCOSE 84 mg/dL (75-110); POTASSIUM 4.8 mmol/L (3.6-5.0); SODIUM 141.1 mmol/L (137-145)
--- NOTE | 2019-01-30 19:29 | EKG REPORT ---
SEVERITY:- NORMAL ECG - SINUS RHYTHM : Confirmed by: Jossy Puente MD 30-Jan-2019 19:28:34
[~2019-02-05 08:35] MED LIST changes: +ACETAMINOPHEN 1,000 MG/100 ML RTUPB IV ONE; +CEFAZOLIN 2 GM/D5W RTU 2 GM/50 ML RTUPB IV PRN; +CLINDAMYCIN 600 MG/D5W RTU 600 MG/50 ML RTUPB IV ONE; +CLINDAMYCIN 600 MG/D5W RTU 600 MG/50 ML RTUPB IV PRN; +DEXAMETHASONE SOD PHOSPHATE INJ 4 MG/1 ML VIAL ONE; -DIPHENHYDRAMINE HCL 50 MG/ML VIAL ONE; +GLYCOPYRROLATE 1 MG/5 ML SYRINGE ONE; +HYDROMORPHONE HCL INJ/PF 2 MG/ML AMPULE ONE; +LACTATED RINGERS 1000 ML IV PRN; +LIDOCAINE 0.5% INJ-PF (5 MG/ML) 50 ML SDV SUBCUT PRN; -LIDOCAINE 2% JELLY 5 ML TUBE ONE; +MIDAZOLAM 2 MG/2 ML INJ ONE; +NEOSTIGMINE METHYLSULFATE 10 MG/10 ML VIAL ONE; +PHENYLEPHRINE HCL INJ/PF 10 MG/1 ML SDV ONE; +PROPOFOL INJ 200 MG/20 ML VIAL IV ONE; +ROCURONIUM BROMIDE INJ 50 MG/5 ML VIAL IV ONE; +SUCCINYLCHOLINE CHLORIDE INJ 200 MG/10 ML VIAL ONE
[2019-02-05] MEDS ORDERED: BUPIVACAINE HCL 0.5%-EPI 1:200000 INJ/PF 30 ML VIAL ONE (09:29)
[2019-02-05] MEDS ORDERED: MORPHINE SULFATE 10 MG/ML INJ IV PRN (09:59)
[2019-02-05] MEDS ORDERED: ONDANSETRON HCL INJ/PF 4 MG/2 ML SDV IV PRN ×2 (09:59→11:31)
[2019-02-05] MEDS ORDERED: FENTANYL CITRATE INJ/PF 100 MCG/2 ML AMPUL IV PRN ×3 (09:59)
[2019-02-05] MEDS ORDERED: DIPHENHYDRAMINE HCL 50 MG/ML VIAL IV PRN (09:59)
[2019-02-05] MEDS ORDERED: MEPERIDINE HCL/PF INJ 25 MG/1 ML DISP.SYRIN IV PRN (09:59)
--- NOTE | 2019-02-05 11:30 | Operative Report ---
Nonrecallable Operative Report DATE OF SURGERY: 02/05/19 PREOPERATIVE DIAGNOSIS: gerd, hiatal hernia POSTOPERATIVE DIAGNOSIS: gerd, hiatal hernia OPERATION: laparoscopic alva fundoplication 1ST WIRE TAPER: QAMAR JIM ANESTHESIA: GA COMPLICATIONS: none ESTIMATED BLOOD LOSS: 20 INTRAOPERATIVE FINDINGS: large hiatal hernia PROCEDURE: see dictation
[2019-02-05] MEDS ORDERED: POTASSI CL 20 MEQ/1/2NS 1L 20 MEQ/1,000 ML RTUINJ IV PRN (11:31)
[2019-02-05] MEDS ORDERED: DEXTROSE 40% GEL 15 GM TUBE PO PRN ×2 (11:44)
[2019-02-05] MEDS ORDERED: GLUCAGON,HUMAN RECOMB 1 MG INJ IM PRN (11:44)
[2019-02-05] MEDS ORDERED: DEXTROSE 50%-WATER 25 GM/50 ML DISP.SYRIN IV PRN ×2 (11:44)
[2019-02-05] MEDS: FENTANYL CITRATE INJ/PF 100 MCG/2 ML AMPUL ONE ×2 (11:58→12:05)
--- NOTE | 2019-02-05 13:02 | OPERATIVE REPORT E ---
Operative Report NAME: JEFERSON KU : 1955 AGE: 63Y DATE OF SURGERY: 02/05/2019 ROOM: OR PREOPERATIVE DIAGNOSES: 1. Gastroesophageal reflux disease. 2. Hiatal hernia. POSTOPERATIVE DIAGNOSES: 1. Gastroesophageal reflux disease. 2. Hiatal hernia. OPERATION: Laparoscopic Marti fundoplication. SURGEON: STAS ROSS M.D. CERAMIC CAPACITOR PROCESSOR: Ziyad Torres M.D. ANESTHESIA: General. PROCEDURE: The patient was brought to the operating room in awake, alert, and stable condition, placed on the operating table in supine position, induced under general anesthesia and intubated. The abdomen was prepped and draped in the usual sterile manner for the procedure. A Veress needle was placed at [place] because of previous laparoscopic colon surgery. The abdomen was insufflated with 6 L of CO2 gas. A 10 mm incision was made at [place] point and a 10 mm port placed in the abdominal cavity. Intra-abdominal visualization revealed no evidence of Veress needle or trocar injury. An infraumbilical 10 mm incision was then made and a 10 mm camera port was placed in that position, two lateral 5 mm ports and one left-sided 5 mm port and an epigastric 5 mm port, all under direct vision. After we placed the ports a liver retractor was placed to retract the left lobe of the liver anteriorly and we identified the gastric body incarcerated through the diaphragmatic hiatus. This reduced with some traction and we began our dissection of the gastrocolic ligament along the mid greater curvature of the stomach with a harmonic scalpel all the way around to the angle of His to identify the left slip of the yecenia. This was mobilized. We incised the sac circumferentially around the diaphragmatic hiatus and removed the sac. This took us over to the right slip of the yecenia which was also identified and we excised the sac from that. We identified the anterior and posterior vagus and preserved those. Once we did this we mobilized the distal esophagus up into the posterior mediastinum with sharp and blunt dissection using the harmonic scalpel to allow the distal esophagus, 6 cm of it, to be brought down to the abdominal cavity. We then used a 54-Zambian bougie dilator easily placed into the posterior pharynx, brought it into the stomach as a measuring device, and closed the hiatus around the posterior portion of the esophagus with interrupted placed 0-Ethibond sutures. Approximately 4 sutures were utilized to close the hiatus, and it closed easily without significant tension. I then passed the fundus posteriorly around the esophagus and fixed it to itself anteriorly with 3 stitches of 0-Surgidac suture, suturing the mosley of the stomach to the esophagus and in the wall of the stomach creating a 360-degree floppy Marti wrap. This was done around the 56-Zambian bougie dilator. The dilator was then removed. The wrap was noted to be markedly floppy and intact. This completed that portion of the procedure. We reduced the pneumoperitoneum. We closed the 10 mm fascial defect in the epigastrium and the umbilicus with 0 Vicryl and then closed the skin incisions with intracuticular 4-0 Biosyn. Steri-Strips completed the procedure. Estimated blood loss was less than 25 mL. Sponge and needle counts were correct x2. The patient was awakened in the operating room, extubated, and transferred to recovery in stable condition, no complications. DICTATING PHYSICIAN: STAS ROSS M.D. [id number] PHY#: [id number] ID: [id number] JOB#: [id number] ACCT: [id number] cc:STAS ROSS M.D. >
[2019-02-05] MEDS: MORPHINE SULFATE 10 MG/ML INJ IV PRN (14:45)
[2019-02-05] MEDS: DIAZEPAM INJ 10 MG/2 ML DISP.SYRIN IV PRN (18:38)
[2019-02-05] MEDS ORDERED: FAMOTIDINE INJ/PF 20 MG/2 ML SDV IV SCH (22:00)
[2019-02-05] MEDS ORDERED: AMLODIPINE BESYLATE 10 MG TABLET PO SCH (22:00)
[2019-02-06] MEDS: METOCLOPRAMIDE HCL INJ/PF 10 MG/2 ML SDV IV SCH ×2 (01:00→01:14)
[2019-02-06] MEDS: HEPARIN SOD (PORCINE) 5,000 UNIT/ML 1 ML SYRINGE SUBCUT SCH ×3 (01:00→07:54)
[2019-02-06] MEDS: DIAZEPAM INJ 10 MG/2 ML DISP.SYRIN IV PRN (01:01)
[2019-02-06] MEDS: MORPHINE SULFATE 10 MG/ML INJ IV PRN (05:55)
[2019-02-06] MEDS ORDERED: LEVOTHYROXINE SODIUM 0.075 MG TABLET PO SCH (06:00)
[2019-02-06 07:03] LABS: ABSOLUTE LYMPHOCYTES (AUTO) 1.9 10^3/uL (0.5-4.7); ABSOLUTE MONOCYTES (AUTO) 1.7 10^3/uL (0.1-1.4); ABSOLUTE NEUT (AUTO) 10.5 10^3/uL (1.7-8.2); BASOPHILS % (AUTO) 0.2 % (0-2); EOSINOPHILS % (AUTO) 0.1 % (0-6); HEMATOCRIT 41.3 % (36.0-47.0); LYMPHOCYTES % (AUTO) 13.5 % (13-45); MEAN CORPUSCULAR HEMOGLOBIN 28.6 pg (27.0-33.4); MEAN CORPUSCULAR VOLUME 84 fl (80-97); MONOCYTES % (AUTO) 11.8 % (3-13); PLATELET COUNT 291 10^3/uL (150-450); RED BLOOD COUNT 4.91 10^6/uL (3.72-5.28); RED CELL DISTRIBUTION WIDTH 13.3 % (11.5-14.0); SEGMENTED NEUTROPHILS % (AUTO) 74.4 % (42-78); TOTAL CELLS COUNTED % (AUTO) 100 %; WHITE BLOOD COUNT 14.2 10^3/uL (4.0-10.5)
[2019-02-06 07:16] LABS: ANION GAP 12 (5-19); BLOOD UREA NITROGEN 8 mg/dL (7-20); CALCIUM 10.1 mg/dL (8.4-10.2); CARBON DIOXIDE 25 mmol/L (22-30); CHLORIDE 96 mmol/L (98-107); GLUCOSE 116 mg/dL (75-110); POTASSIUM 4.9 mmol/L (3.6-5.0); SODIUM 132.7 mmol/L (137-145)
--- NOTE | 2019-02-06 07:43 | PDOC PROGRESS REPORT ---
Subjective Progress Note for:: 02/06/19 Reason For Visit: GERD, HIATAL HERNIA s/p lap alva Physical Exam Vital Signs: Temp Pulse Resp BP Pulse Ox 97.7 F 67 18 143/78 H 96 02/06/19 05:09 02/06/19 05:09 02/06/19 05:09 02/06/19 05:09 02/06/19 05:09 Intake & Output 02/05/19 02/06/19 02/07/19 06:59 06:59 06:59 Intake Total 2720 Output Total 3075 Balance -355 Weight 68.04 kg General appearance: PRESENT: no acute distress Head exam: PRESENT: normocephalic Eye exam: PRESENT: EOMI Ear exam: PRESENT: normal external ear exam Mouth exam: PRESENT: moist Neck exam: PRESENT: full ROM Respiratory exam: PRESENT: clear to auscultation branden Cardiovascular exam: PRESENT: RRR Pulses: PRESENT: normal radial pulses, normal femoral pulses Vascular exam: PRESENT: normal capillary refill GI/Abdominal exam: PRESENT: soft Rectal exam: PRESENT: deferred Extremities exam: PRESENT: full ROM Musculoskeletal exam: PRESENT: full ROM Neurological exam: PRESENT: alert, awake, oriented to person, oriented to place Psychiatric exam: PRESENT: appropriate affect Skin exam: PRESENT: dry Results Laboratory Results: 02/06/19 06:39 02/06/19 06:39 02/06/19 02/06/19 06:39 06:39 WBC 14.2 H RBC 4.91 Hgb 14.0 Hct 41.3 MCV 84 MCH 28.6 MCHC 34.0 RDW 13.3 Plt Count 291 Seg Neutrophils % 74.4 Lymphocytes % 13.5 Monocytes % 11.8 Eosinophils % 0.1 Basophils % 0.2 Absolute Neutrophils 10.5 H Absolute Lymphocytes 1.9 Absolute Monocytes 1.7 H Absolute Eosinophils 0.0 Absolute Basophils 0.0 Sodium 132.7 L Potassium 4.9 Chloride 96 L Carbon Dioxide 25 Anion Gap 12 BUN 8 Creatinine 0.52 Est GFR ( Amer) > 60 Est GFR (Non-Af Amer) > 60 Glucose 116 H Calcium 10.1 Assessment & Plan - Plan Summary Plan Summary: s/p lap alva doing well dulce liquids will dc home today
[2019-02-06] MEDS ORDERED: INSULIN REG, HUMAN 100 UNIT/ML 3 ML VIAL (PYX) SUBCUT SCH (08:00)
[2019-02-06 09:55] VITALS: BP 132/79
[2019-02-06] MEDS ORDERED: LEVOTHYROXINE SODIUM 0.15 MG TABLET PO SCH (10:00)
[2019-02-06] MEDS ORDERED: AMLODIPINE BESYLATE 10 MG TABLET PO SCH (10:00)
--- NOTE | 2019-02-06 11:40 | DISCHARGE SUMMARY E ---
Discharge Summary NAME: JEFERSON KU : 1955 AGE: 63Y ADMITTED: 02/05/2019 DISCHARGED: 02/06/2019 ADMISSION DIAGNOSES: 1. Gastroesophageal reflux disease. 2. Hiatal hernia. DISCHARGE DIAGNOSES: 1. Gastroesophageal reflux disease. 2. Hiatal hernia. OPERATIVE PROCEDURE: Laparoscopic Marti fundoplication. SURGEON: Clayton Ross M.D. REASON FOR HOSPITALIZATION/HOSPITAL COURSE: This is a 63-year-old female who was admitted on 02/05/2019 for an elective laparoscopic Marti fundoplication. She underwent the procedure and tolerated it well. Postoperatively had a routine benign postoperative course. She was started on clear liquid diet immediately after the procedure, which she had tolerated through the evening, and this morning feels well. She is tolerating a full liquid diet and has been appropriately educated on her type of diet for discharge. She is going to be discharged home today with instructions to take a full liquid type diet until she sees me back in the office. DISCHARGE MEDICATIONS: 1. Tramadol 50 mg 1 p.o. q.6 p.r.n. pain. 2. Colace 100 mg p.o. b.i.d. 3. She is instructed to hold her metformin until she resumes her regular diet and hold her statin medication. 4. She will resume her Synthroid and her blood pressure medications. DICTATING PHYSICIAN: CLAYTON ROSS M.D. [id number] PHY#: [id number] ID: [id number] JOB#: [id number] ACCT: [id number] cc:CLAYTON ROSS M.D. >
--- NOTE | 2019-02-07 10:05 | DISCHARGE SUMMARY E ---
Discharge Summary NAME: JEFERSON KU : 1955 AGE: 63Y ADMITTED: 02/05/2019 DISCHARGED: 02/06/2019 ADDENDUM FINAL DIAGNOSES: 1. Gastroesophageal reflux disease. 2. Hiatal hernia. DICTATING PHYSICIAN: STAS ROSS M.D. [id number] PHY#: [id number] ID: [id number] JOB#: [id number] ACCT: [id number] cc:STAS ROSS M.D. >
--- NOTE | 2019-02-07 10:05 | OPERATIVE REPORT E ---
Operative Report NAME: JEFERSON KU : 1955 AGE: 63Y DATE OF SURGERY: 02/06/2019 ROOM: 210 ADDENDUM ACCOUNTING AUDITOR: Ziyad Torres MD He was there for aid in retraction. DICTATING PHYSICIAN: STAS ROSS M.D. [id number] PHY#: [id number] ID: [id number] JOB#: [id number] ACCT: [id number] cc:STAS ROSS M.D. >
== END 2019-02-06 10:15 | disposition home or self-care (01) | DRG 328 ==
LOC: INOR 08:35 → UNDOADMIN 08:35 → 2N 13:23
PROVIDERS: ADMIT Surgery; ATTEND Surgery
PROC: 0BQT4ZZ Repair Diaphragm, Percutaneous Endoscopic Approach (ICD-10-PCS; 2019-02-05)
PROC: 0DV44ZZ Restriction of Esophagogastric Junction, Percutaneous Endoscopic Approach (ICD-10-PCS; principal; 2019-02-05 10:30)
DX: K44.9 Diaphragmatic hernia without obstruction or gangrene (principal); K21.9 Gastro-esophageal reflux disease without esophagitis; Z88.8 Allergy status to other drugs, medicaments and biological substances; E11.9 Type 2 diabetes mellitus without complications; F32.9 Major depressive disorder, single episode, unspecified; I10 Essential (primary) hypertension; D64.9 Anemia, unspecified; E03.9 Hypothyroidism, unspecified; Z79.890 Hormone replacement therapy; Z79.899 Other long term (current) drug therapy; Z90.710 Acquired absence of both cervix and uterus; Z90.79 Acquired absence of other genital organ(s); Z90.49 Acquired absence of other specified parts of digestive tract
CPT/HCPCS: 36415; 790; 80048; 82962; 85025; 85027; 93005; 93010; J0131; J0330; J1100; J1170; J1644; J2250; J2270; J2370; J2405; J2704; J2710; J2765; J3010; J3360; J3480; J3490; S0028

== ENCOUNTER → 2019-08-18 | Outpatient (CLI) | payer MEDICARE, BC ==
--- NOTE | 2019-08-18 09:27 | WOMENS IMAGING REPORT ---
EXAM DESCRIPTION: BONE DENSITY HIP/SPINE COMPLETED DATE/TIME: 08/18/2019 9:16 am REASON FOR STUDY: Z78.0 BONE DENSITY Z12.31 ENCNTR SCREEN MAMMOGRAM FOR MALIGNANT NEOPLASM OF TEJAS Z 78.0 ASYMPTOMATIC MENOPAUSAL STATE COMPARISON: None. TECHNIQUE: Dual-Energy X-ray Absorptiometry (DEXA) of the AP Spine and Hip. LIMITATIONS: None. FINDINGS: LUMBAR SPINE: The bone mineral density (BMD) measured from L1-L4 in the AP projection correlates with a T-score of -3.0, which is osteoporosis as defined by the World Health Organization. HIP: The bone mineral density (BMD) measured in the left hip correlates with a T-score of -2.2, which is o steopenia as defined by the World Health Organization. IMPRESSION: 1. LUMBAR SPINE: OSTEOPOROSIS. 2. HIP: OSTEOPENIA. COMMENT: The World Health Organization defines low BMD as follows: T-score: Normal: Greater than -1.0 Osteopenia: Between -1.0 and -2.5 Osteoporosis: Less than -2.5 without fractures Established osteoporosis: Less than -2.5 with fractures In general, you may wish to consider: Diagnosis Treatment Follow-up DEXA Normal BMD Prevention 2-3 years Osteopenia Prevention/Therapy 1-2 years Osteoporosis Therapy Yearly TECHNICAL DOCUMENTATION: JOB ID: [id number] [employer]- All Rights Reserved Reading location - IP/workstation name: [email or web address]
--- NOTE | 2019-08-19 10:52 | WOMENS IMAGING REPORT ---
EXAM DESCRIPTION: 3D SCREENING MAMMO BILAT COMPLETED DATE/TIME: 08/18/2019 9:16 am REASON FOR STUDY: Z12.31 SCREENING MAMMO Z12.31 ENCNTR SCREEN MAMMOGRAM FOR MALIGNANT NEOPLASM OF B RE Z78.0 ASYMPTOMATIC MENOPAUSAL STATE COMPARISON: 2014 EXAM PARAMETERS: Views: Standard craniocaudal and mediolateral oblique views of each breast recorded using digital acquisition and breast tomosynthesis. Read with the assistance of CAD. .[facility] - [employer] Triage Specialist Version 9.2 LIMITATIONS: None. FINDINGS: No suspicious masses, suspicious calcifications or architectural distortion. No areas of c oncern. IMPRESSION: NEGATIVE MAMMOGRAM. BIRADS 1. BREAST DENSITY: b. There are scattered areas of fibroglandular density. BIRAD: ASSESSMENT: 1 NEGATIVE RECOMMENDATION: ROUTINE SCREENING COMMENT: The patient has been notified of the results by letter per MQSA requirements. Additional no tification policies are in place for contacting patient with suspicious or incomplete findings. Quality ID #225: The [employer] recommends an annual screening mammogram for women aged 40 years or over. This facility utilizes a reminder system to ensure that all patients receive reminder letters, and/or direct phone calls for appointments. This includes reminders for routine scr eening mammograms, diagnostic mammograms, or other Breast Imaging Interventions when appropriate. Th is patient will be placed in the appropriate reminder system. TECHNICAL DOCUMENTATION: FINDING NUMBER: (1) ASSESSMENT: (1) JOB ID: [id number] [employer]- All Rights Reserved Reading location - IP/workstation name: [email or web address]
== END ==
LOC: WI 08:30
PROVIDERS: ATTEND Physician Assistant
DX: Z12.31 Encounter for screening mammogram for malignant neoplasm of breast (principal); Z13.820 Encounter for screening for osteoporosis; Z78.0 Asymptomatic menopausal state; M81.0 Age-related osteoporosis without current pathological fracture
CPT/HCPCS: 77063; 77067; 77080

== ENCOUNTER → 2020-08-19 | Outpatient (CLI) | payer BC, OTHER, MEDICARE ==
--- NOTE | 2020-08-19 11:04 | WOMENS IMAGING REPORT ---
EXAM DESCRIPTION: 3D SCREENING MAMMO BILAT IMAGES COMPLETED DATE/TIME: 08/19/2020 9:36 am REASON FOR STUDY: Z12.31 ENCOUNTER FOR SCREENING MAMMOGRAM FOR MALIGNANT NEOPLASM OF BREAST Z12.31 ENCNTR SCREEN MAMMOGRAM FOR MALIGNANT NEOPLASM OF TEJAS COMPARISON: 2016 and subsequent EXAM PARAMETERS: Views: Standard craniocaudal and mediolateral oblique views of each breast recorded using digital acquisition and breast tomosynthesis. Read with the assistance of CAD. .[facility], [facility] - [employer] Community Artist Version 9.2 LIMITATIONS: None. FINDINGS: No suspicious masses, suspicious calcifications or architectural distortion. No areas of c oncern. IMPRESSION: NEGATIVE MAMMOGRAM. BIRADS 1. BREAST DENSITY: b. There are scattered areas of fibroglandular density. BIRAD: ASSESSMENT: 1 NEGATIVE RECOMMENDATION: ROUTINE SCREENING COMMENT: The patient has been notified of the results by letter per MQSA requirements. Additional no tification policies are in place for contacting patient with suspicious or incomplete findings. Quality ID #225: The [employer] recommends an annual screening mammogram for women aged 40 years or over. This facility utilizes a reminder system to ensure that all patients receive reminder letters, and/or direct phone calls for appointments. This includes reminders for routine scr eening mammograms, diagnostic mammograms, or other Breast Imaging Interventions when appropriate. Th is patient will be placed in the appropriate reminder system. TECHNICAL DOCUMENTATION: FINDING NUMBER: (1) ASSESSMENT: (1) JOB ID: [id number] 2010 [employer]- All Rights Reserved Reading location - IP/workstation name: [email or web address]
== END ==
LOC: WI 09:04
PROVIDERS: ATTEND Physician Assistant
DX: Z12.31 Encounter for screening mammogram for malignant neoplasm of breast (principal)
CPT/HCPCS: 77063; 77067

== ENCOUNTER 2020-09-25 10:40 | Emergency (ER) | payer MEDICARE, BC, OTHER ==
[2020-09-25] MEDS ORDERED: NORMAL SALINE 1000 ML 1,000 ML IV ONE (11:26)
[2020-09-25] MEDS ORDERED: KETOROLAC TROMETHAMINE INJ/PF 30 MG/1 ML SDV IV ONE (11:27)
--- NOTE | 2020-09-25 11:32 | ER Document Report ---
ED General - General Chief Complaint: Flank Pain Stated Complaint: FLANK/BACK PAIN Time Seen by Provider: 09/25/20 11:05 Primary Care Provider: DINH MARTINEZ PA-C [Primary Care Provider] - Follow up as needed Mode of Arrival: Ambulatory Information source: Patient Notes: This 65-year-old woman presents to the emergency department with a complaint of right sided flank and rib pain. She denies any known injury states the symptoms began 5 days ago. She notes increased pain with cough sneezing or deep breath. There is also tenderness to touch from the right epigastric region and extending into the right back area on the right. Patient has had a history of pancreatitis in the past. She states that it was thought to be secondary to medication which she was taking for diabetes. She also denies chest pain or shortness of breath. Patient does note that she began a more rigorous exercise program 2 weeks ago. She is unsure whether the pain may be related to her new activity. TRAVEL OUTSIDE OF THE [place] IN LAST 30 DAYS: No - Related Data Allergies/Adverse Reactions: zanamivir [From Relenza Diskhaler] Allergy (Intermediate, Verified 10/29/18 16:32) breathing difficulty lisinopril Allergy (Verified 10/29/18 16:32) sitagliptin [From Janumet XR] Allergy (Verified 10/29/18 16:32) amoxicillin [From Augmentin] Adverse Reaction (Severe, Verified 02/05/19 13:50) clavulanic acid [From Augmentin] Adverse Reaction (Severe, Verified 02/05/19 13:50) adhesive sensitivity Adverse Reaction (Uncoded 10/29/18 16:32) redness Home Medications: Amlodipine, Synthroid, Simvastatin, Fluticasone, Flovent, Ventolin, Metformin, [place] Oil, Vitamin D3, Myralax, Nexium, Baby Aspirin. Past Medical History - Social History Smoking Status: Never Smoker Family History: DM, Hypertension - Past Medical History Cardiac Medical History: Reports: Hx Hypercholesterolemia, Hx Hypertension Denies: Hx Atrial Fibrillation, Hx Congestive Heart Failure, Hx Coronary Artery Disease, Hx Heart Attack, Hx Peripheral Vascular Disease, Hx Pulmonary E mbolism, Hx Heart Murmur Pulmonary Medical History: Reports: Hx Asthma - MILD Denies: Hx Bronchitis, Hx COPD, Hx Pneumonia, Hx Respiratory Failure, Hx Sleep Apnea, Hx Tuberculosis Neurological Medical History: Denies: Hx Cerebrovascular Accident, Hx Seizures Endocrine Medical History: Reports: Hx Diabetes Mellitus Type 2, Hx Hypothyroidism. Denies: Hx Graves' Disease, Hx Hyperthyroidism Renal/ Medical History: Reports: Hx Ovarian Cysts. Denies: Hx End Stage Renal Disease, Hx Kidney Stones, Hx Peritoneal Dialysis, Hx Pelvic Inflammatory Disease Malignancy Medical History: Denies: Hx Breast Cancer, Hx Cervical Cancer, Hx Lung Cancer, Hx Ovarian Cancer GI Medical History: Reports: Hx Gastroesophageal Reflux Disease. Denies: Hx Crohn's Disease, Hx Hepatitis, Hx Hiatal Hernia, Hx Irritable Bowel, Hx Liver Failure, Hx Pancreatitis, Hx Ulcer Musculoskeletal Medical History: Denies Hx Arthritis, Denies Hx Fibromyalgia, Denies Hx Muscular Dystrophy, Denies Hx Systemic Lupus Erythematosus Psychiatric Medical History: Denies: Hx Depression Traumatic Medical History: Reports: Hx Fractures - R. toe while running; L. shoulder 2010 Infectious Medical History: Denies: Hx Hepatitis Past Surgical History: Reports: Hx Bowel Surgery - Colon resection in 2006, Hx Cholecystectomy, Hx Hysterectomy, Hx Tonsillectomy, Hx Tubal Ligation, Other - Partial colectomy secondary to diverticulitis. Denies: Hx Section, Hx Colostomy, Hx Gastric Bypass Surgery, Hx Herniorrhaphy, Hx Mastectomy, Hx Open Heart Surgery, Hx Pacemaker - Immunizations Hx Diphtheria, Pertussis, Tetanus Vaccination: Yes Hx Pneumococcal Vaccination: 09/02/08 Review of Systems - Review of Systems Notes: Constitutional: Negative for fever. HENT: Negative for sore throat. Eyes: Negative for visual changes. Cardiovascular: Negative for chest pain. Chest: See HPI Respiratory: Negative for shortness of breath. Gastrointestinal: See HPI Genitourinary: Negative for dysuria. Musculoskeletal: Negative for back pain. Skin: Negative for rash. Neurological: Negative for headaches, weakness or numbness. 10 point ROS negative except as marked above and in HPI. Physical Exam - Vital signs Vitals: Temp Pulse Resp BP Pulse Ox 98.0 F 88 18 125/80 95 09/25/20 10:50 09/25/20 10:50 09/25/20 10:50 09/25/20 10:50 09/25/20 10:50 - Notes Notes: PHYSICAL EXAMINATION: Physical Exam: General: Well-nourished well-developed 65-year-old woman in no acute distress HEENT: NC/AT, pupils equal round and reactive to light, MM moist,nares clear, oropharynx clear, airway patent Neck: supple, no adenopathy, no masses. Good range of motion Lungs: clear, no wheezing, no rales no rhonchi CVS: Regular rate and rhythm no murmur gallop or rub Chest: Tenderness in the posterior lower rib cage without crepitus, no step-off, no obvious bruising or rash. Abdomen: Soft, active, + epigastric tenderness, greater on the left and right, no masses, no hepatosplenomegaly Ext: No edema, clubbing or cyanosis. Neuro: Alert and responsive, moving all 4 extremities on command, cranial nerves intact, no focal findings Skin: Intact no open lesions, no rash PSYCH: Normal mood, normal affect. Course - Re-evaluation Re-evalutation: 09/25/20 14:57 Patient some relief from her pain with Toradol. Review of the chest x-ray and CT scan are negative. The labs also are negative and there are no findings to support a diagnosis of pancreatitis. I have explained to the patient that her symptoms are likely due to musculoskeletal pain. She has been given a prescription for a tramadol and a muscle relaxant to be taken at bedtime. Asked her to follow-up with her primary care doctor as needed and the patient acknowledges understanding of this plan. - Vital Signs Vital signs: Temp Pulse Resp BP Pulse Ox 97.8 F 77 16 133/76 H 97 09/25/20 15:27 09/25/20 15:27 09/25/20 15:27 09/25/20 15:27 09/25/20 15:27 - Laboratory Results Result Diagrams: 09/25/20 11:19 09/25/20 11:19 Laboratory Results Interpreted: 09/25/20 09/25/20 11:19 11:19 RDW 15.1 H Eos % (Auto) 10.1 H Absolute Eos (auto) 0.8 H Glucose 116 H Critical Laboratory Results Reviewed: No Critical Results - Radiology Results Radiology Results Interpreted: 09/25/20 15:53 Chest X-Ray 09/25/20 11:24 IMPRESSION: NO ACUTE RADIOGRAPHIC FINDING IN THE CHEST. Abdomen/Pelvis CT 09/25/20 11:25 IMPRESSION: 1. No acute abnormality to explain the patient's symptoms. 2. Mild hepatic steatosis. 3. Colonic diverticulosis without evidence of diverticulitis. 4. Rectal anastomosis is patent. No bowel obstruction. 5. Small hiatal hernia. Critical Radiology Results Reviewed: No Critical Results Discharge - Discharge Clinical Impression: Acute right flank pain, Musculoskeletal chest pain Condition: Stable Disposition: HOME, SELF-CARE Instructions: Flank Pain ([facility]), Muscle Strain ([facility]) Additional Instructions: You were seen in the emergency department today with pain in your left flank and left side. X-ray of the chest and CT scan of the abdomen are negative for internal causes of the pain. The labs also are negative and do not support a diagnosis of pancreatitis or urinary tract infection. It appears that your symptoms are due to musculoskeletal causes. Muscle strain or sprain with secondary muscle spasm can cause the type pain that you are experiencing. Please take the medications as prescribed, tramadol, baclofen Use a cool compress to the area of pain for improvement of the pain and relaxation of the muscles. If symptoms are worsening or if you have other concerns you may return to the emergency department for further evaluation and treatment HOME CARE INSTRUCTIONS & INFORMATION: Thank you for choosing us for your medical needs. We hope you're satisfied with the care you received. After you leave, you must properly care for your problem and, at the same time, observe its progress. Any condition can change. Some illnesses can change rapidly over hours or days. If your condition worsens, return to the Emergency Department or see your physician promptly. ABOUT YOUR X-RAYS AND EKG'S: If you had an EKG or X-rays taken, they have been read by the Emergency Physician. The X-rays and EKG's will also be read by a Radiologist or Environmental Health Technologist within 24 hours. If discrepancies are noted, you will be notified by telephone. Please be certain the ED has a correct telephone number & address where you can be reached. Also, realize that some fractures or abnormalities do not show up on initial X-rays. If your symptoms continue, see your physician. ABOUT YOUR LABORATORY TEST: If you had laboratory tests, the results have been reviewed by the Emergency Physician. Some test results (for example cultures) may not be available for several days. You will be contacted if any test result shows you need additional treatment. Please be certain the ED has a correct telephone number and address where you can be reached. ABOUT YOUR MEDICATIONS: You will receive instructions on how to take your medicine on the prescription label you receive. Additional information may be provided by the Pharmacy. If you have questions afterwards, call the ED for clarification or further instructions. Some prescribed medications may cause drowsiness. Do not perform tasks such as driving a car or operating machinery without consulting your Pharmacist. If you feel you need a refill of pain medication, your condition will need re-evaluation. Please do not call for a refill of any medication. ABOUT YOUR SIGNATURE: Signature of this document acknowledges to followin. Understanding that you received emergency treatment and that you may be released before al medical problems are known or treated. Please be certain the ED has a correct phone number & address where you can be reached. 2. Acknowledgement that you will arrange for follow-up care as recommended. 3. Authorization for the Emergency Physician to provide information to your follow-up Physician in order to maximize your care. AT ANY TIME, IF YOUR SYMPTOMS CHANGE SIGNIFICANTLY OR WORSEN OR YOU DEVELOP NEW SYMPTOMS, RETURN TO THE EMERGENCY DEPARTMENT IMMEDIATELY FOR RE-EVALUATION. OUR GOAL IS TO PROVIDE EXCELLENT MEDICAL CARE! WE HOPE THAT WE HAVE MET YOUR EXPECTATIONS DURING YOUR EMERGENCY DEPARTMENT VISIT AND THAT YOU FEEL YOU HAVE RECEIVED EXCELLENT CARE! Prescriptions: Baclofen [Baclofen 10 mg Tablet] 10 mg PO QHS #10 tab Tramadol HCl [Ultram 50 mg Tablet] 50 mg PO Q4HP PRN #10 tab PRN Reason: Referrals: DINH MARTINEZ PA-C [Primary Care Provider] - Follow up as needed
[2020-09-25 11:34] LABS: ABSOLUTE BASOPHILS # (AUTO) 0.1 10^3/uL (0.0-0.2); ABSOLUTE EOSINOPHILS # (AUTO) 0.8 10^3/uL (0.0-0.6); ABSOLUTE LYMPHOCYTES (AUTO) 2.5 10^3/uL (0.5-4.7); ABSOLUTE NEUT (AUTO) 3.9 10^3/uL (1.7-8.2); BASOPHILS % (AUTO) 0.9 % (0-2); EOSINOPHILS % (AUTO) 10.1 % (0-6); HEMATOCRIT 38.7 % (36.0-47.0); HEMOGLOBIN 13.2 g/dL (12.0-15.5); LYMPHOCYTES % (AUTO) 30.3 % (13-45); MEAN CORPUSCULAR HEMOGLOBIN 28.6 pg (27.0-33.4); MEAN CORPUSCULAR HGB CONC 34.2 g/dL (32.0-36.0); MEAN CORPUSCULAR VOLUME 84 fl (80-97); MONOCYTES % (AUTO) 12.2 % (3-13); PLATELET COUNT 328 10^3/uL (150-450); RED BLOOD COUNT 4.62 10^6/uL (3.72-5.28); RED CELL DISTRIBUTION WIDTH 15.1 % (11.5-14.0); SEGMENTED NEUTROPHILS % (AUTO) 46.5 % (42-78); TOTAL CELLS COUNTED % (AUTO) 100 %; WHITE BLOOD COUNT 8.4 10^3/uL (4.0-10.5)
[2020-09-25 11:49] LABS: ALBUMIN 4.4 g/dL (3.5-5.0); ALKALINE PHOSPHATASE 95 U/L (38-126); ANION GAP 11 (5-19); ASPARTATE AMINO TRANSFERASE 33 U/L (14-36); BILIRUBIN,DIRECT 0.2 mg/dL (0.0-0.4); BILIRUBIN,TOTAL 0.5 mg/dL (0.2-1.3); BLOOD UREA NITROGEN 12 mg/dL (7-20); CALCIUM 10.2 mg/dL (8.4-10.2); CARBON DIOXIDE 25 mmol/L (22-30); CHLORIDE 105 mmol/L (98-107); GLUCOSE 116 mg/dL (75-110); TOTAL PROTEIN 7.3 g/dL (6.3-8.2)
--- NOTE | 2020-09-25 12:01 | RADIOLOGY REPORT (SQ) ---
EXAM DESCRIPTION: CHEST SINGLE VIEW IMAGES COMPLETED DATE/TIME: 09/25/2020 11:35 am REASON FOR STUDY: Right sided chest pain COMPARISON: 07/13/2018. EXAM PARAMETERS: NUMBER OF VIEWS: One view. TECHNIQUE: Single frontal radiographic view of the chest acquired. RADIATION DOSE: NA LIMITATIONS: None. FINDINGS: LUNGS AND PLEURA: No opacities, masses or pneumothorax. No pleural effusion. MEDIASTINUM AND HILAR STRUCTURES: No masses. Contour normal. HEART AND VASCULAR STRUCTURES: Heart normal in size. Normal vasculature. BONES: No acute findings. HARDWARE: None in the chest. OTHER: No other significant finding. IMPRESSION: NO ACUTE RADIOGRAPHIC FINDING IN THE CHEST. TECHNICAL DOCUMENTATION: JOB ID: [id number] 2010 [employer]- All Rights Reserved Reading location - IP/workstation name: [email or web address]
[2020-09-25 12:36] LABS: APPEARANCE,URINE CLEAR; BILIRUBIN,URINE NEGATIVE (NEGATIVE); COLOR,URINE STRAW; GLUCOSE, URINE NEGATIVE (NEGATIVE); KETONES,URINE NEGATIVE (NEGATIVE); LEUKOCYTE ESTERASE,URINE NEGATIVE (NEGATIVE); NITRITE,URINE NEGATIVE (NEGATIVE); PROTEIN,URINE NEGATIVE (NEGATIVE); URINE SPECIFIC GRAVITY 1.003; UROBILINOGEN,URINE NEGATIVE mg/dL (<2.0)
--- NOTE | 2020-09-25 12:55 | RADIOLOGY REPORT (SQ) ---
EXAM DESCRIPTION: CT ABD/PELVIS WITH IV ONLY IMAGES COMPLETED DATE/TIME: 09/25/2020 11:30 am REASON FOR STUDY: Epigastric abdominal pain. COMPARISON: 07/16/2015 TECHNIQUE: CT scan of the abdomen and pelvis performed using helical scanning technique with dynamic intravenous contrast injection. No oral contrast. Images reviewed with lung, soft tissue, and bone windows. Reconstructed coronal and sagittal MPR images reviewed. Delayed images for evaluation of the urinary system also acquired. All images stored on PACS. All CT scanners at this facility use dose modulation, iterative reconstruction, and/or weight based d osing when appropriate to reduce radiation dose to as low as reasonably achievable (ALARA). [facility]: Dose Right [facility]: CareDose [facility]: Dose Right [facility]: Teradose 4D [facility]: Captual CONTRAST TYPE AND DOSE: contrast/concentration: Isovue mmol/ml; Total Contrast Delivered: 79.0 ml; Total Saline Delivered: 58.0 ml RENAL FUNCTION: GFR > 60. RADIATION DOSE: CT Rad equipment meets quality standard of care and radiation dose reduction techniq ues were employed. CTDIvol: 8.2 - 11.3 mGy. DLP: 948 mGy-cm.. LIMITATIONS: None. FINDINGS: LOWER CHEST: 4 mm solid nodule in the right middle lobe is stable from 2015, consistent wi th postinfectious/postinflammatory nodule. No focal consolidation or pleural effusion. No pneumotho rax. LIVER: Liver has normal size and contour. There is mild diffuse hepatic steatosis. No focal hepatic mass. Hepatic and portal veins are patent. No biliary ductal dilation. SPLEEN: Normal size. No focal lesions. PANCREAS: No masses. No significant calcifications. No adjacent inflammation or peripancreatic fluid collections. Pancreatic duct not dilated. GALLBLADDER: Surgically absent. ADRENAL GLANDS: No significant masses or asymmetry. RIGHT KIDNEY AND URETER: No solid masses. No significant calcifications. No hydronephrosis or hyd roureter. LEFT KIDNEY AND URETER: No solid masses. No significant calcifications. No hydronephrosis or hydr oureter. AORTA AND VESSELS: No aneurysm. No dissection. Renal arteries, SMA, celiac without stenosis. RETROPERITONEUM: No retroperitoneal adenopathy, hemorrhage or masses. BOWEL AND PERITONEAL CAVITY: Small hiatal hernia. There is a surgical anastomosis in the rectum. Co lonic diverticulosis without evidence of diverticulitis. No bowel obstruction. No bowel wall thicke luca or inflammatory change. No ascites or pneumoperitoneum. APPENDIX: Normal. PELVIS: Post hysterectomy. No adnexal mass. Urinary bladder has normal contour. No bladder wall th ickening, intraluminal bladder mass or debris. ABDOMINAL WALL: No masses. No hernias. BONES: No significant or acute findings. OTHER: No other significant finding. IMPRESSION: 1. No acute abnormality to explain the patient's symptoms. 2. Mild hepatic steatosis. 3. Colonic diverticulosis without evidence of diverticulitis. 4. Rectal anastomosis is patent. No bowel obstruction. 5. Small hiatal hernia. TECHNICAL DOCUMENTATION: JOB ID: [id number] Quality ID # [id number]: Final reports with documentation of one or more dose reduction techniques (e.g., Au tomated exposure control, adjustment of the mA and/or kV according to patient size, use of iterative reconstruction technique) 2010 [employer]- All Rights Reserved Reading location - IP/workstation name: [email or web address]
[2020-09-25 15:27] VITALS: BP 133/76
--- OUTSIDE RECORDS SUMMARY | 2020-09-27 10:42 | XMS REPORT ---
:1955 [facility] [address] [place] [address] Care Team Providers Name Role Phone Stefano DALY Attending Clinician Unavailable Dmitri Sahni Attending Clinician Unavailable Erendira Attending Clinician Unavailable Allergies, Adverse Reactions, Alerts Allergy Name Allergy Status Severity Reaction(s) Onset Inactive Treat ing Comments Type Date Date Clinician Amoxicillin Allergy to Active Trihydrate Drug (Ingredient( (Finding) s): amoxicillin) potassium Allergy to Active Clavulanate Drug from (Finding) Augmentin Zanamivir Allergy to Active Asthma/Short Drug ness of (Finding) Breath Augmentin Augmentin Active TABS TABS Janumet TABS Janumet Active TABS Lisinopril Lisinopril Active TABS TABS Relenza Relenza Active Diskhaler Diskhaler AEPB AEPB Latex Latex Active Augmentin Allergy to Active substance Janumet Allergy to Active substance Latex Allergy to Active substance Lisinopril Allergy to Active substance Relenza Allergy to Active Diskhaler substance Medications Ordered Filled Start Stop Current Ordering Indication Dosage Frequency Signature Comments Components Medication Medication Date Date Medication? Clinician (SIG) Name Name Esomeprazol 2019-09 Yes Esomeprazo e Magnesium 2-14 le 20 MG Oral 00:00: Magnesium Capsule 00 20 MG Oral Delayed Capsule Release Delayed Release Refills: 0 Start : 0Active Feraheme 2019-09 No 510mg Feraheme 09-11 00:00: 00 Sodium 2019- No 50mL Sodium Chloride 1-10 Chloride 00:00: 00 Feraheme 2019-09 2020- No 510mg Feraheme 09-04 00:00: 00:00 00 :00 Sodium 2019- 2020- No 50mL Sodium Chloride -03 11-10 Chloride 00:00: 00:00 00 :00 Ventolin 2017-09 No 2puff(s Ventolin HFA 90 2-24 ) HFA 90 mcg/actuati 00:00: mcg/actuat on aerosol 00 ion inhaler aerosol Inhale 2 inhaler puffs by Inhale 2 inhalation puffs by route as inhalation needed. route as needed. Vitamin C 2017-09 Yes QD Vitamin C 500 MG Oral 1-29 500 MG Capsule 00:00: Oral 00 Capsule TAKE 1 CAPSULE DAILY Refills: 0 Start : 8Active Simvastatin Yes Simvastati 20 MG Oral 5-29 n 20 MG Tablet 00:00: Oral 00 Tablet TAKE ONE TABLET BY MOUTH EVERY DAY FOR 30 DAYS Quantity: 18 Refills: 0 Start : 8Active amLODIPine Yes QD amLODIPine Besylate 10 6-16 Besylate MG Oral 00:00: 10 MG Oral Tablet 00 Tablet TAKE 1 TABLET DAILY Refills: 0 Start : 7Active 30 Tablet Bottle metFORMIN Yes 1 Q0.3333D metFORMIN HCl ER 500 5-20 HCl ER 500 MG Oral 00:00: MG Oral Tablet 00 Tablet Extended Extended Release 24 Release 24 Hour Hour TAKE 1 TABLET 3 TIMES DAILY Refills: 0 Start : 7Active amlodipine No amlodipine 10 mg 10 mg tablet Take tablet 1 tab every Take 1 tab day every day aspirin 81 No 1 Q1D aspirin 81 mg chewable mg tablet Chew chewable 1 tablet tablet every day Chew 1 by oral tablet route at every day bedtime. by oral route at bedtime. epinephrine No epinephrin 0.3 mg/0.3 e 0.3 mL mg/0.3 mL injection, injection, auto-inject auto-injec or tor Flovent HFA No Flovent 220 HFA 220 mcg/actuati mcg/actuat on aerosol ion inhaler aerosol Inhale 1 inhaler puff twice Inhale 1 a day by puff twice inhalation a day by route. inhalation route. fluticasone No fluticason propionate e 50 propionate mcg/actuati 50 on nasal mcg/actuat spray,suspe ion nasal nsion 1-2 spray,susp sprays each ension 1-2 nostril at sprays night time. each nostril at night time. Fluzone No Fluzone High-Dose High-Dose Quad Quad 2020-21 2020-21 (PF) 240 (PF) 240 mcg/0.7 mL mcg/0.7 mL IM syringe IM syringe metformin No metformin ER 500 mg ER 500 mg tablet,exte tablet,ext nded ended release 24 release 24 hr TAKE hr TAKE THREE THREE TABLETS BY TABLETS BY MOUTH EVERY MOUTH DAY EVERY DAY simvastatin No simvastati 20 mg n 20 mg tablet TAKE tablet ONE TABLET TAKE ONE BY MOUTH TABLET BY EVERY DAY MOUTH EVERY DAY Synthroid No Synthroid 75 mcg 75 mcg tablet TAKE tablet ONE TABLET TAKE ONE BY MOUTH TABLET BY DAILY MOUTH DAILY Vitamin D3 No Vitamin D3 25 mcg 25 mcg (1,000 (1,000 unit) unit) tablet Take tablet by oral Take by route. oral route. Aspirin 81 Yes 1 Aspirin 81 MG TABS MG TABS TAKE 1 TABLET BEDTIME Refills: 0 Active Synthroid Yes 1 QD Synthroid 75 MCG Oral 75 MCG Tablet Oral Tablet TAKE 1 TABLET DAILY. Refills: 0 Active Multi-Vitam Yes 1 QD Multi-Mirna in Oral min Oral Tablet Tablet TAKE 1 TABLET DAILY. Refills: 0 Active Flovent HFA Yes Q0.5D Flovent 220 MCG/ACT HFA 220 Inhalation MCG/ACT Aerosol Inhalation Aerosol USE 1 PUFF TWICE DAILY.RINS E MOUTH AFTER USE. Refills: 0 Active Ventolin Yes Ventolin HFA 108 (90 HFA 108 Base) (90 Base) MCG/ACT MCG/ACT Inhalation Inhalation Aerosol Aerosol Solution Solution INHALE 1 TO 2 PUFFS EVERY 4 TO 6 HOURS NEEDED. Refills: 0 Active Flonase 50 Yes Flonase 50 MCG/ACT MCG/ACT SUSP SUSP Use once daily as needed Refills: 0 Active Loratadine Yes Loratadine 10 MG Oral 10 MG Oral Tablet Tablet as needed Refills: 0 Active Vitamin D3 Yes QD Vitamin D3 250 MCG 250 MCG (40718 UT) (59484 UT) Oral Oral Capsule Capsule TAKE 1 CAPSULE DAILY Refills: 0 Active MiraLax 17 Yes MiraLax 17 GM Oral GM Oral Packet Packet USE DIRECTED. Refills: 0 Active Fish Oil No QD Fish Oil 1200 MG 1200 MG Oral Oral Capsule Capsule TAKE 1 CAPSULE DAILY Refills: 0 Active [place] Yes QD [place] Oil-1000 Oil-1000 CAPS CAPS TAKE 1 CAPSULE DAILY Refills: 0 Active Ascorbic Yes 1 Acid Cholecalcif Yes 2 jason Esomeprazol Yes 1 e Magnesium Fish Oil Yes 1 Burp-Less Fluticasone Yes 1 Propionate (Inhal) Loratadine Yes 1 Ventolin Yes 1 HFA Cholecalcif No 2 jason Fluticasone No 1 Propionate (Inhal) Prevacid 2019- No 1 03-18 14:03 :34 Problems Condition Condition Condition Status Onset Resolution Last Treatin g Comments Name Details Category Date Date Treatment Clinician Date Mild Mild Problem Active 2019-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 Recurrent 2-14 major Major 00:00: depression Depression 00 Mild Mild Problem Active 2019-09 intermitten Intermitten 2-14 t asthma t Asthma 00:00: 00 Multiple Multiple Problem Active 2019-09 complicatio Complicatio 2-14 ns due to ns Due to 00:00: type 2 Type 2 00 diabetes Diabetes mellitus Mellitus Depressive Depressive Problem Inactiv 2019-09 disorder Disorder e 09-24 00:00: 00 Elevated Elevated Problem Active 2019-09 liver Liver 09-24 enzymes Enzymes 00:00: level Level 00 Iron Iron Problem Active 2017-09 deficiency Deficiency 1-19 anemia Anemia 00:00: 00 Body mass Body Mass Problem Active 2017-09 index 30+ - Index 30+ - 1-10 obesity Obesity 00:00: 00 Intestinal Intestinal Diagnosis active malabsorpti malabsorpti on on Diabetes Diabetes Problem Active mellitus Mellitus Vitamin D Vitamin D Problem Active deficiency Deficiency Pure Pure Problem Active hyperglycer Hyperglycer idemia idemia Hyperlipide Hyperlipide Problem Active kenan kenan Reactive Reactive Problem Active depression Depression (situationa (Situationa l) l) Essential Essential Problem Active hypertensio Hypertensio n n Asthma Asthma Problem Inactiv e Gastroesoph Gastroesoph Problem Active ageal ageal reflux Reflux disease Disease Chronic Chronic Problem Active nonalcoholi Nonalcoholi c liver c Liver disease Disease 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 Liver Liver Problem Active function Function tests Tests abnormal Abnormal Hypothyroid Hypothyroid Problem Active ism ism Benign Benign Problem Active essential essential hypertensio hypertensio n n Abnormal Abnormal Problem Active EKG EKG Cardiac Cardiac Problem Active arrhythmia arrhythmia Mixed Mixed Problem Active hyperlipide hyperlipide kenan kenan Procedures Procedure Date / Time Performed Performing Clinician Devic e pulse oximetry (PROC) 2020-07-25 00:00:00 EKG 2020-06-27 00:00:00 Hernia Repair 2019-03-02 00:00:00 OFFICE/OUTPATIENT VISIT EST 2018-11-26 15:45:00 hernia repair 2018-09-02 00:00:00 colonoscopy 2017-09-02 00:00:00 Colon Resection 2006-09-02 00:00:00 hysterectomy 1979-09-02 00:00:00 tubal ligation 1976-09-02 00:00:00 cholecystectomy tonsillectomy Cholecystectomy Hysterectomy Other Tonsillectomy History of Tubal Ligation History of Hysterectomy History of Tonsillectomy History of Partial Colectomy History of Cholecystectomy Results Test Description Test Time Test Comments Text Results Atomic Results Result Comments Lipid 1995 panel - Serum or Plasma 2020-07-19 00:00:00 Test Item Value Reference Range Comments Cholesterol [Mass/volume] in Serum or Plasma (test code 163 mg/d L <200 = 2093-3) Cholesterol in HDL [Mass/volume] in Serum or Plasma 46 mg/dL > or = 50 (test code = 2085-9) Triglyceride [Mass/volume] in Serum or Plasma (test code 223 mg/ dL <150 = 2571-8) Cholesterol in LDL [Mass/volume] in Serum or Plasma by 86 mg/dL (calc) calculation (test code = 55027-5) Cholesterol.total/Cholesterol.in HDL [Mass ratio] in 3.5 (calc) <5.0 Serum or Plasma (test code = 9830-1) Cholesterol non HDL [Mass/volume] in Serum or Plasma 117 mg/dL ( calc) <130 (test code = 77567-0) Comprehensive metabolic 2000 panel - Serum or [id number] 00:00:00 Test Item Value Reference Range Comments Glucose [Mass/volume] in Serum or Plasma 89 mg/dL 65-99 (test code = 2345-7) Urea nitrogen [Mass/volume] in Serum or 12 mg/dL 7-25 Plasma (test code = 3094-0) Creatinine [Mass/volume] in Serum or Plasma 0.77 mg/dL 0.50 -0.99 (test code = 2160-0) Glomerular filtration rate/1.73 sq 80 mL/min/1.73m2 > or = 60 M.predicted [Volume Rate/Area] in Serum, Plasma or Blood by Creatinine-based formula (MDRD) (test code = 52343-6) Glomerular filtration rate/1.73 sq 93 mL/min/1.73m2 > or = 60 M.predicted among blacks [Volume Rate/Area] in Serum, Plasma or Blood by Creatinine-based formula (MDRD) (test code = 43958-1) Urea nitrogen/Creatinine [Mass Ratio] in not applicable 6-22 Serum or Plasma (test code = 3097-3) Sodium [Moles/volume] in Serum or Plasma 141 mmol/L 135-146 (test code = 2951-2) Potassium [Moles/volume] in Serum or Plasma 4.3 mmol/L 3.5- 5.3 (test code = 2823-3) Chloride [Moles/volume] in Serum or Plasma 104 mmol/L 98-11 0 (test code = 2075-0) Carbon dioxide, total [Moles/volume] in 26 mmol/L 20-32 Serum or Plasma (test code = 2027-9) Calcium [Mass/volume] in Serum or Plasma 9.4 mg/dL 8.6-10. 4 (test code = 03923-8) Protein [Mass/volume] in Serum or Plasma 6.8 g/dL 6.1-8.1 (test code = 2885-2) Albumin [Mass/volume] in Serum or Plasma 4.2 g/dL 3.6-5.1 (test code = 1751-7) Globulin [Mass/volume] in Serum by 2.6 g/dL (calc) 1.9-3.7 calculation (test code = 86902-7) Albumin/Globulin [Mass Ratio] in Serum or 1.6 (calc) 1.0-2. 5 Plasma (test code = 1759-0) Bilirubin.total [Mass/volume] in Serum or 0.5 mg/dL 0.2-1. 2 Plasma (test code = 1974-) Alkaline phosphatase [Enzymatic 106 U/L 37-153 activity/volume] in Serum or Plasma (test code = 6768-6) Aspartate aminotransferase [Enzymatic 41 U/L 10-35 activity/volume] in Serum or Plasma (test code = 1920-8) Alanine aminotransferase [Enzymatic 66 U/L 6-29 activity/volume] in Serum or Plasma (test code = 1742-6) CBC W Auto Differential panel - [id number] 00:00:00 Test Item Value Reference Range Comments Leukocytes [#/volume] in Blood by Automated 8.2 thousand/uL 3.8- 10.8 count (test code = 6690-2) Erythrocytes [#/volume] in Blood by 4.87 million/uL 3.80-5.10 Automated count (test code = 789-8) Hemoglobin [Mass/volume] in Blood (test code 13.7 g/dL 11. 7-15.5 = 718-7) Hematocrit [Volume Fraction] of Blood by 42.2 % 35.0-45 .0 Automated count (test code = 4544-3) Erythrocyte mean corpuscular volume [Entitic 86.7 fL 80. 0-100.0 volume] by Automated count (test code = 787-2) Erythrocyte mean corpuscular hemoglobin 28.1 pg 27.0-33. 0 [Entitic mass] by Automated count (test code = 785-6) Erythrocyte mean corpuscular hemoglobin 32.5 g/dL 32.0-36. 0 concentration [Mass/volume] by Automated count (test code = 786-4) Erythrocyte distribution width [Ratio] by 13.0 % 11.0-1 5.0 Automated count (test code = 788-0) Platelets [#/volume] in Blood by Automated 302 thousand/uL 140-4 00 count (test code = 777-3) Platelet mean volume [Entitic volume] in 9.9 fL 7.5-12. 5 Blood by Qi (test code = 776-5) Neutrophils [#/volume] in Blood by Automated 3624 cells/uL 150 0-7800 count (test code = 751-8) Lymphocytes [#/volume] in Blood by Automated 2870 cells/uL 850 -3900 count (test code = 731-0) Monocytes [#/volume] in Blood by Automated 853 cells/uL 200-9 50 count (test code = 742-7) Eosinophils [#/volume] in Blood by Automated 754 cells/uL 15- 500 count (test code = 711-2) Basophils [#/volume] in Blood by Automated 98 cells/uL 0-200 count (test code = 704-7) Neutrophils/100 leukocytes in Blood by 44.2 % Automated count (test code = 770-8) Lymphocytes/100 leukocytes in Blood by 35.0 % Automated count (test code = 736-9) Monocytes/100 leukocytes in Blood by 10.4 % Automated count (test code = 5905-5) Eosinophils/100 leukocytes in Blood by 9.2 % Automated count (test code = 713-8) Basophils/100 leukocytes in Blood by 1.2 % Automated count (test code = 706-2) Thyrotropin [Units/volume] in Serum or [id number] 00:00:00 Test Item Value Reference Range Comments Thyrotropin [Units/volume] in Serum or Plasma 5.71 mIU/L 0. 40-4.50 (test code = 3016-3) 25-Hydroxyvitamin D2+25-Hydroxyvitamin D3 [Mass/volume] in Serum or Plasma 2020-07-19 00:00:00 Test Item Value Reference Range Comments Calcidiol [Mass/volume] in Serum or Plasma (test 55 NG/mL 30-100 code = 1989-3) Lipid 1995 panel - Serum or [id number] 00:00:00 Test Item Value Reference Range Comments Cholesterol [Mass/volume] in Serum or 163 mg/dL <200 Plasma (test code = 2093-3) Cholesterol in HDL [Mass/volume] in Serum 46 mg/dL > or = 50 or Plasma (test code = 2085-9) Triglyceride [Mass/volume] in Serum or 223 mg/dL <150 Plasma (test code = 2571-8) Cholesterol in LDL [Mass/volume] in Serum 86 mg/dL (calc) or Plasma by calculation (test code = 75515-1) Cholesterol.total/Cholesterol.in HDL [Mass 3.5 (calc) <5.0 ratio] in Serum or Plasma (test code = 9830-1) Cholesterol non HDL [Mass/volume] in Serum 117 mg/dL (calc) <130 or Plasma (test code = 49379-5) Comprehensive metabolic 2000 panel - Serum or [id number] 00:00:00 Test Item Value Reference Range Comments Glucose [Mass/volume] in Serum or Plasma 89 mg/dL 65-99 (test code = 2345-7) Urea nitrogen [Mass/volume] in Serum or 12 mg/dL 7-25 Plasma (test code = 3094-0) Creatinine [Mass/volume] in Serum or Plasma 0.77 mg/dL 0.50 -0.99 (test code = 2160-0) Glomerular filtration rate/1.73 sq 80 mL/min/1.73m2 > or = 60 M.predicted [Volume Rate/Area] in Serum, Plasma or Blood by Creatinine-based formula (MDRD) (test code = 49774-9) Glomerular filtration rate/1.73 sq 93 mL/min/1.73m2 > or = 60 M.predicted among blacks [Volume Rate/Area] in Serum, Plasma or Blood by Creatinine-based formula (MDRD) (test code = 22108-4) Urea nitrogen/Creatinine [Mass Ratio] in not applicable 6-22 Serum or Plasma (test code = 3097-3) Sodium [Moles/volume] in Serum or Plasma 141 mmol/L 135-146 (test code = 2951-2) Potassium [Moles/volume] in Serum or Plasma 4.3 mmol/L 3.5- 5.3 (test code = 2823-3) Chloride [Moles/volume] in Serum or Plasma 104 mmol/L 98-11 0 (test code = 2075-0) Carbon dioxide, total [Moles/volume] in 26 mmol/L 20-32 Serum or Plasma (test code = 2027-) Calcium [Mass/volume] in Serum or Plasma 9.4 mg/dL 8.6-10. 4 (test code = 02236-1) Protein [Mass/volume] in Serum or Plasma 6.8 g/dL 6.1-8.1 (test code = 2885-2) Albumin [Mass/volume] in Serum or Plasma 4.2 g/dL 3.6-5.1 (test code = 1751-7) Globulin [Mass/volume] in Serum by 2.6 g/dL (calc) 1.9-3.7 calculation (test code = 28127-3) Albumin/Globulin [Mass Ratio] in Serum or 1.6 (calc) 1.0-2. 5 Plasma (test code = 1759-0) Bilirubin.total [Mass/volume] in Serum or 0.5 mg/dL 0.2-1. 2 Plasma (test code = 1974-) Alkaline phosphatase [Enzymatic 106 U/L 37-153 activity/volume] in Serum or Plasma (test code = 6768-6) Aspartate aminotransferase [Enzymatic 41 U/L 10-35 activity/volume] in Serum or Plasma (test code = 1919-8) Alanine aminotransferase [Enzymatic 66 U/L 6-29 activity/volume] in Serum or Plasma (test code = 174-6) CBC W Auto Differential panel - [id number] 00:00:00 Test Item Value Reference Range Comments Leukocytes [#/volume] in Blood by Automated 8.2 thousand/uL 3.8- 10.8 count (test code = 6690-2) Erythrocytes [#/volume] in Blood by 4.87 million/uL 3.80-5.10 Automated count (test code = 789-8) Hemoglobin [Mass/volume] in Blood (test code 13.7 g/dL 11. 7-15.5 = 718-7) Hematocrit [Volume Fraction] of Blood by 42.2 % 35.0-45 .0 Automated count (test code = 4544-3) Erythrocyte mean corpuscular volume [Entitic 86.7 fL 80. 0-100.0 volume] by Automated count (test code = 787-2) Erythrocyte mean corpuscular hemoglobin 28.1 pg 27.0-33. 0 [Entitic mass] by Automated count (test code = 785-6) Erythrocyte mean corpuscular hemoglobin 32.5 g/dL 32.0-36. 0 concentration [Mass/volume] by Automated count (test code = 786-4) Erythrocyte distribution width [Ratio] by 13.0 % 11.0-1 5.0 Automated count (test code = 788-0) Platelets [#/volume] in Blood by Automated 302 thousand/uL 140-4 00 count (test code = 777-3) Platelet mean volume [Entitic volume] in 9.9 fL 7.5-12. 5 Blood by Qi (test code = 776-5) Neutrophils [#/volume] in Blood by Automated 3624 cells/uL 150 0-7800 count (test code = 751-8) Lymphocytes [#/volume] in Blood by Automated 2870 cells/uL 850 -3900 count (test code = 731-0) Monocytes [#/volume] in Blood by Automated 853 cells/uL 200-9 50 count (test code = 742-7) Eosinophils [#/volume] in Blood by Automated 754 cells/uL 15- 500 count (test code = 711-2) Basophils [#/volume] in Blood by Automated 98 cells/uL 0-200 count (test code = 704-7) Neutrophils/100 leukocytes in Blood by 44.2 % Automated count (test code = 770-8) Lymphocytes/100 leukocytes in Blood by 35.0 % Automated count (test code = 736-9) Monocytes/100 leukocytes in Blood by 10.4 % Automated count (test code = 5905-5) Eosinophils/100 leukocytes in Blood by 9.2 % Automated count (test code = 713-8) Basophils/100 leukocytes in Blood by 1.2 % Automated count (test code = 706-2) Thyrotropin [Units/volume] in Serum or [id number] 00:00:00 Test Item Value Reference Range Comments Thyrotropin [Units/volume] in Serum or Plasma 5.71 mIU/L 0. 40-4.50 (test code = 3016-3) 25-Hydroxyvitamin D3+25-Hydroxyvitamin D2 [Mass/volume] in Serum or Plasma 2020-07-19 00:00:00 Test Item Value Reference Range Comments 25-hydroxyvitamin D3 [Mass/volume] in Serum or 55 NG/mL 3 0-100 Plasma (test code = 1989-3) Urinalysis macro (dipstick) panel - [id number] 20:17:00 Test Item Value Reference Range Comments Glucose (test code = Glucose) Negative Bilirubin (test code = Bilirubin) Small Ketones (test code = Ketones) Negative SG (test code = SG) 1.030 Blood (test code = Blood) Negative pH (test code = pH) 5.5 Protein (test code = Protein) Negative Urobilinogen (test code = Urobilinogen) 0.2 Nitrites (test code = Nitrites) negative Leukocytes (test code = Leukocytes) Negative Appearance (test code = Appearance) Clear Color (test code = Color) Yellow Urinalysis macro (dipstick) panel - [id number] 20:17:00 Test Item Value Reference Range Comments Glucose (test code = Glucose) Negative Bilirubin (test code = Bilirubin) Small Ketones (test code = Ketones) Negative SG (test code = SG) 1.030 Blood (test code = Blood) Negative pH (test code = pH) 5.5 Protein (test code = Protein) Negative Urobilinogen (test code = Urobilinogen) 0.2 Nitrites (test code = Nitrites) negative Leukocytes (test code = Leukocytes) Negative Appearance (test code = Appearance) Clear Color (test code = Color) Yellow Hemoglobin A1c/Hemoglobin.total in [id number] 14:44:00 Test Item Value Reference Range Comments HbA1c (test code = HbA1c) 5.2% Hemoglobin A1c/Hemoglobin.total in [id number] 14:44:00 Test Item Value Reference Range Comments HbA1c (test code = HbA1c) 5.2% [id number] 13:16:00 Test Item Value Reference Range Comments Creatinine (test code = Creatinine) 0.7900 mg/dL 0.5700-1.000 0 Cr Clearance (Est) (test code = Cr 77.6500 75.0000-115.0 000 Clearance (Est)) Glucose (test code = Glucose) 92.0000 mg/dL 65.0000-99.0000 BUN (test code = BUN) 15.0000 mg/dL 8.0000-27.0000 eGFR Pbo-Egadqqi-Fwlreelr (test code = 78.0000 eGFR Olg-Cqcoaan-Vforjfdt) eGFR -Swiss (test code = eGFR 90.0000 -Swiss) BUN/Creat Ratio (test code = BUN/Creat 19.0000 12.0000-2 8.0000 Ratio) Sodium (test code = Sodium) 141.0000 mmol/L 134.0000-144.0000 Potassium (test code = Potassium) 4.6000 mmol/L 3.5000-5.2000 Chloride (test code = Chloride) 103.0000 mmol/L 96.0000-106.0000 CO2 (test code = CO2) 23.0000 mmol/L 20.0000-29.0000 Calcium (test code = Calcium) 9.9000 mg/dL 8.7000-10.3000 Protein, Total (test code = Protein, 6.7000 g/dL 6.0000-8.50 00 Total) Albumin (test code = Albumin) 4.4000 g/dL 3.8000-4.8000 Globulin (test code = Globulin) 2.3000 g/dL 1.5000-4.5000 A/G Ratio (test code = A/G Ratio) 1.9000 1.2000-2.2000 Bilirubin, Total (test code = Bilirubin, 0.4000 mg/dL 0.0000- 1.2000 Total) Alkaline Phosphatase (test code = Alkaline 116.0000 39.00 00-117.0000 Phosphatase) AST (SGOT) (test code = AST (SGOT)) 22.0000 0.0000-40.00 00 ALT (SGPT) (test code = ALT (SGPT)) 26.0000 0.0000-32.00 00 Iron, Total (test code = Iron, Total) 79.0000 27.0000-13 9.0000 TIBC (test code = TIBC) 357.0000 250.0000-450.0000 UIBC (test code = UIBC) 278.0000 118.0000-369.0000 % Iron Saturation (test code = % Iron 22.0000 % 15.0000-55 .0000 Saturation) Ferritin (test code = Ferritin) 39.0000 ng/mL 15.0000-150.0000 [id number] 10:05:00 Test Item Value Reference Range Comments WBC (test code = WBC) 7.9000 4.0000-10.0000 Lymphocytes % (test code = Lymphocytes %) 34.5000 % 22.400 0-43.6000 MID% (test code = MID%) 7.1000 % 1.2000-11.2000 Neutrophils % (test code = Neutrophils %) 58.4000 % 48.900 0-69.9000 Lymphocytes (test code = Lymphocytes) 2.7000 1.2000-3.2 000 MID (test code = MID) 0.6000 0.1000-1.1000 Neutrophils (test code = Neutrophils) 4.6000 1.5000-6.7 000 RBC (test code = RBC) 4.8900 3.7000-4.9000 HGB (test code = HGB) 13.6000 g/dL 11.2000-18.0000 HCT (test code = HCT) 40.9000 % 34.0000-44.0000 MCV (test code = MCV) 83.5000 fL 80.0000-94.0000 MCH (test code = MCH) 27.8000 pg 27.0000-34.0000 MCHC (test code = MCHC) 33.3000 g/dL 31.5000-36.0000 RDW (test code = RDW) 14.4000 11.0000-18.0000 PLT (test code = PLT) 334.0000 140.0000-440.0000 MPV (test code = MPV) 8.2000 fL 6.8000-10.6000 [id number] 14:00:00 Test Item Value Reference Range Comments Creatinine (test code = Creatinine) 0.7700 mg/dL 0.5700-1.000 0 Cr Clearance (Est) (test code = Cr 80.7400 75.0000-115.0 000 Clearance (Est)) Glucose (test code = Glucose) 109.0000 mg/dL 65.0000-99.0000 BUN (test code = BUN) 18.0000 mg/dL 8.0000-27.0000 eGFR Hyd-Tvartyx-Kfierldi (test code = 81.0000 eGFR Ogm-Jhaucko-Bpkoyflj) eGFR -Swiss (test code = eGFR 94.0000 -Swiss) BUN/Creat Ratio (test code = BUN/Creat 23.0000 12.0000-2 8.0000 Ratio) Sodium (test code = Sodium) 143.0000 mmol/L 134.0000-144.0000 Potassium (test code = Potassium) 4.8000 mmol/L 3.5000-5.2000 Chloride (test code = Chloride) 100.0000 mmol/L 96.0000-106.0000 CO2 (test code = CO2) 23.0000 mmol/L 20.0000-29.0000 Calcium (test code = Calcium) 9.6000 mg/dL 8.7000-10.3000 Protein, Total (test code = Protein, 7.1000 g/dL 6.0000-8.50 00 Total) Albumin (test code = Albumin) 4.6000 g/dL 3.8000-4.8000 Globulin (test code = Globulin) 2.5000 g/dL 1.5000-4.5000 A/G Ratio (test code = A/G Ratio) 1.8000 1.2000-2.2000 Bilirubin, Total (test code = Bilirubin, 0.3000 mg/dL 0.0000- 1.2000 Total) Alkaline Phosphatase (test code = Alkaline 112.0000 39.00 00-117.0000 Phosphatase) AST (SGOT) (test code = AST (SGOT)) 22.0000 0.0000-40.00 00 ALT (SGPT) (test code = ALT (SGPT)) 25.0000 0.0000-32.00 00 Iron, Total (test code = Iron, Total) 65.0000 27.0000-13 9.0000 TIBC (test code = TIBC) 325.0000 250.0000-450.0000 UIBC (test code = UIBC) 260.0000 118.0000-369.0000 % Iron Saturation (test code = % Iron 20.0000 % 15.0000-55 .0000 Saturation) Ferritin (test code = Ferritin) 107.0000 ng/mL 15.0000-150.0000 [id number] 13:35:00 Test Item Value Reference Range Comments WBC (test code = WBC) 10.0000 4.0000-10.0000 Lymphocytes % (test code = Lymphocytes %) 36.6000 % 22.400 0-43.6000 MID% (test code = MID%) 7.6000 % 1.2000-11.2000 Neutrophils % (test code = Neutrophils %) 55.8000 % 48.900 0-69.9000 Lymphocytes (test code = Lymphocytes) 3.6000 1.2000-3.2 000 MID (test code = MID) 0.8000 0.1000-1.1000 Neutrophils (test code = Neutrophils) 5.6000 1.5000-6.7 000 RBC (test code = RBC) 5.2500 3.7000-4.9000 HGB (test code = HGB) 14.2000 g/dL 11.2000-18.0000 HCT (test code = HCT) 44.6000 % 34.0000-44.0000 MCV (test code = MCV) 84.9000 fL 80.0000-94.0000 MCH (test code = MCH) 27.1000 pg 27.0000-34.0000 MCHC (test code = MCHC) 31.9000 g/dL 31.5000-36.0000 RDW (test code = RDW) 14.7000 11.0000-18.0000 PLT (test code = PLT) 330.0000 140.0000-440.0000 MPV (test code = MPV) 7.9000 fL 6.8000-10.6000 [id number] 13:48:00 Test Item Value Reference Range Comments Creatinine (test code = Creatinine) 0.6400 mg/dL 0.5700-1.000 0 Cr Clearance (Est) (test code = Cr 93.3800 75.0000-115.0 000 Clearance (Est)) Glucose (test code = Glucose) 90.0000 mg/dL 65.0000-99.0000 BUN (test code = BUN) 20.0000 mg/dL 8.0000-27.0000 eGFR Phf-Zfxnajx-Ssqgfiga (test code = 94.0000 eGFR Bla-Foylkdr-Jvqlycqd) eGFR -Swiss (test code = eGFR 108.0000 -Swiss) BUN/Creat Ratio (test code = BUN/Creat 31.0000 12.0000-2 8.0000 Ratio) Sodium (test code = Sodium) 139.0000 mmol/L 134.0000-144.0000 Potassium (test code = Potassium) 4.4000 mmol/L 3.5000-5.2000 Chloride (test code = Chloride) 102.0000 mmol/L 96.0000-106.0000 CO2 (test code = CO2) 22.0000 mmol/L 20.0000-29.0000 Calcium (test code = Calcium) 9.9000 mg/dL 8.7000-10.3000 Protein, Total (test code = Protein, 6.7000 g/dL 6.0000-8.50 00 Total) Albumin (test code = Albumin) 4.6000 g/dL 3.6000-4.8000 Globulin (test code = Globulin) 2.1000 g/dL 1.5000-4.5000 A/G Ratio (test code = A/G Ratio) 2.2000 1.1999-2.1999 Bilirubin, Total (test code = Bilirubin, 0.4000 mg/dL 0.0000- 1.2000 Total) Alkaline Phosphatase (test code = Alkaline 105.0000 39.00 00-117.0000 Phosphatase) AST (SGOT) (test code = AST (SGOT)) 28.0000 0.0000-40.00 00 ALT (SGPT) (test code = ALT (SGPT)) 31.0000 0.0000-32.00 00 Iron, Total (test code = Iron, Total) 94.0000 27.0000-13 9.0000 TIBC (test code = TIBC) 344.0000 250.0000-450.0000 UIBC (test code = UIBC) 250.0000 118.0000-369.0000 % Iron Saturation (test code = % Iron 27.0000 % 15.0000-55 .0000 Saturation) Ferritin (test code = Ferritin) 134.0000 ng/mL 15.0000-150.0000 [id number] 10:26:00 Test Item Value Reference Range Comments WBC (test code = WBC) 10.3000 4.0000-10.0000 Lymphocytes % (test code = Lymphocytes %) 34.0000 % 22.400 0-43.6000 MID% (test code = MID%) 7.1000 % .1999- Neutrophils % (test code = Neutrophils %) 58.9000 % 48.900 0-69.9000 Lymphocytes (test code = Lymphocytes) 3.5000 1.2000-3.2 000 MID (test code = MID) 0.8000 0.1000-1.1000 Neutrophils (test code = Neutrophils) 6.0000 1.5000-6.7 000 RBC (test code = RBC) 5.2200 3.7000-4.9000 HGB (test code = HGB) 14.3000 g/dL 11.2000-18.0000 HCT (test code = HCT) 44.7000 % 34.0000-44.0000 MCV (test code = MCV) 85.6000 fL 80.0000-94.0000 MCH (test code = MCH) 27.4000 pg 27.0000-34.0000 MCHC (test code = MCHC) 32.0000 g/dL 31.5000-36.0000 RDW (test code = RDW) 14.4000 11.0000-18.0000 PLT (test code = PLT) 307.0000 140.0000-440.0000 MPV (test code = MPV) 7.6000 fL 6.8000-10.6000 [id number] 14:41:00 Test Item Value Reference Range Comments Creatinine (test code = Creatinine) 0.7100 mg/dL 0.5700-1.000 0 Cr Clearance (Est) (test code = Cr 85.1900 75.0000-115.0 000 Clearance (Est)) Glucose (test code = Glucose) 90.0000 mg/dL 65.0000-99.0000 BUN (test code = BUN) 20.0000 mg/dL 8.0000-27.0000 eGFR Leh-Qzeegve-Pptaotee (test code = 90.0000 eGFR Awl-Axrdlpt-Cyqhgyee) eGFR -Swiss (test code = eGFR 103.0000 -Swiss) BUN/Creat Ratio (test code = BUN/Creat 28.0000 12.0000-2 8.0000 Ratio) Sodium (test code = Sodium) 141.0000 mmol/L 134.0000-144.0000 Potassium (test code = Potassium) 4.6000 mmol/L 3.5000-5.2000 Chloride (test code = Chloride) 101.0000 mmol/L 96.0000-106.0000 CO2 (test code = CO2) 22.0000 mmol/L 20.0000-29.0000 Calcium (test code = Calcium) 9.6000 mg/dL 8.7000-10.3000 Protein, Total (test code = Protein, 7.1000 g/dL 6.0000-8.50 00 Total) Albumin (test code = Albumin) 4.6000 g/dL 3.6000-4.8000 Globulin (test code = Globulin) 2.5000 g/dL 1.5000-4.5000 A/G Ratio (test code = A/G Ratio) 1.8000 1.2000-2.2000 Bilirubin, Total (test code = Bilirubin, 0.4000 mg/dL 0.0000- 1.2000 Total) Alkaline Phosphatase (test code = Alkaline 113.0000 39.00 00-117.0000 Phosphatase) AST (SGOT) (test code = AST (SGOT)) 31.0000 0.0000-40.00 00 ALT (SGPT) (test code = ALT (SGPT)) 48.0000 0.0000-32.00 00 Iron, Total (test code = Iron, Total) 92.0000 27.0000-13 9.0000 TIBC (test code = TIBC) 346.0000 250.0000-450.0000 UIBC (test code = UIBC) 254.0000 118.0000-369.0000 % Iron Saturation (test code = % Iron 27.0000 % 15.0000-55 .0000 Saturation) Vitamin D (25-Hydroxy) (test code = 37.4000 ng/mL 30.0000-100. 0000 Vitamin D (25-Hydroxy)) Ferritin (test code = Ferritin) 139.0000 ng/mL 15.0000-150.0000 [id number] 13:47:00 Test Item Value Reference Range Comments WBC (test code = WBC) 11.0000 4.0000-10.0000 Lymphocytes % (test code = Lymphocytes %) 32.5000 % 22.400 0-43.6000 MID% (test code = MID%) 6.6000 % 1.2000-11.2000 Neutrophils % (test code = Neutrophils %) 60.9000 % 48.900 0-69.9000 Lymphocytes (test code = Lymphocytes) 3.6000 1.2000-3.2 000 MID (test code = MID) 0.7000 0.1000-1.1000 Neutrophils (test code = Neutrophils) 6.7000 1.5000-6.7 000 RBC (test code = RBC) 5.5200 3.7000-4.9000 HGB (test code = HGB) 15.0000 g/dL 11.2000-18.0000 HCT (test code = HCT) 46.5000 % 34.0000-44.0000 MCV (test code = MCV) 84.2000 fL 80.0000-94.0000 MCH (test code = MCH) 27.1000 pg 27.0000-34.0000 MCHC (test code = MCHC) 32.2000 g/dL 31.5000-36.0000 RDW (test code = RDW) 14.1000 11.0000-18.0000 PLT (test code = PLT) 338.0000 140.0000-440.0000 MPV (test code = MPV) 7.7000 fL 6.8000-10.6000 [id number] 07:45:00SINUS RHYTHMAGE: 63 RACE: [place] Gender: FORDERING PHYSICIAN: DEXTER KRISHNA MDAccession Number: [id number] by: Hussein Miguel 31-Oct-2018 22:04:36MRN: [id number] NAME: KINGSJEFERSON AOROUT:SEVERITY:- NORMAL ECG -GLUCOSE,BEDSIDE\S\[id number] 06:53:00 Test Item Value Reference Range Comments GLUCOSE,BEDSIDE (test code = GLUBS) 85 mg/dL 70-110 Assessments Condition Name Status Diagnosis Date Treating Clinici an Adult health examination Active 2020-08-15 11:32:12 Advance directive discussed with 2020-08-15 11:3 1:08 patient Depression screening 2020-08-15 11:31:29 At low risk for fall 2020-08-15 11:31:35 Screening for alcohol abuse 2020-08-15 11:55:02 Administration of pneumococcal vaccine 2020-08-02 4 11:31:19 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 2020-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 11: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 2020-08-15 11:57 :06 Mild intermittent asthma 2020-08-15 11:57:13 Hypothyroidism 2020-07-25 06:09:06 Iron deficiency anemia 2020-07-25 06:09:06 Vitamin D deficiency 2020-07-25 06:09:06 Asthma 2020-07-25 06:09:06 Body mass index 30+ - obesity 2020-07-23 06:09:0 6 Screening for malignant neoplasm of Active 2020-07-25 0 6:08:12 breast Screening for malignant neoplasm of Active 2020-07-25 0 6:08:12 colon Screening for osteoporosis Active 2020-07-25 06:08:12 Depressive disorder Active 2020-07-25 06:34:51 Essential hypertension Active 2020-07-25 06:09:06 Diabetes mellitus Active 2020-07-25 06:29:39 Hyperlipidemia Active 2020-07-25 06:11:06 Elevated liver enzymes level Active 2020-07-25 06:27:17 Hyperlipidemia Active Benign essential hypertension Active Abnormal EKG Active Cardiac arrhythmia Active Essential hypertension Active Mixed hyperlipidemia Active Iron deficiency anemia, unspecified Active Dvrtclos of intest, part unsp, 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 or abscess w/o bleed Other hemorrhoids Active Body mass index (BMI) 32.0-32.9, adult Active Chest discomfort Active Palpitations Active Benign essential hypertension Active Abnormal EKG Active Hyperlipidemia Active Encounters Start End Encounter Admission Attending Care Care Encounter Date/Time Date/Time Type Type Clinicians Facility Department ID 2020-08-15 2020-08-15 Appointment AMARI Agarwal [facility] [id number] 08:30:00 09:30:51 ; Lopez Agarwal MD 2020-08-15 2020-08-15 [id number] 00:00:00 00:00:00 MD Idalia: [facility] [address] [place] [address], Ph. 2020-07-25 2020-07-25 Larissa [facility] [id number] 00:00:00 00:00:00 Donny [facility] 123 PA-C: [address] [place] [address], Ph. 2020-07-12 2020-07-12 Outpatient Dmitri [facility] n [id number] 00:00:00 00:00:00 [facility] 2020-07-05 2020-07-05 Outpatient [facility] n [id number] 00:00:00 00:00:00 Shanice [facility] Medical Oncology Oncology [facility] [place] 2020-06-22 2020-06-22 Outpatient Felipe Karmenabi n [id number] 00:00:00 00:00:00 [facility] [place] 2] Oncology Oncology [facility] [place] 2020-06-20 2020-06-20 Outpatient Felipe Rizvi n [id number] 00:00:00 00:00:00 Shanice [facility] [place][note 2] Oncology Oncology [facility] 2020-06-17 2020-06-17 Outpatient Felipe Rizvi n [id number] 00:00:00 00:00:00 Shanice [facility] Medical Oncology Oncology [facility] [place] 2020-06-16 2020-06-16 Outpatient Felipe Karmenabi n [id number] 00:00:00 00:00:00 [facility] [place][note 2] Oncology Oncology [facility] 2020-03-18 2020-03-18 Dmitri [facility] 2 [id number] 00:00:00 00:00:00 Talishagualberto Prasad [facility] [place][note 2] Oncology Oncology [facility] 2019-12-24 2019-12-24 Outpatient Felipe Rizvi n [id number] 00:00:00 00:00:00 Shanice [facility] [place][note 2] Oncology Oncology [facility] 2019-09-15 2019-09-15 Dr. Dmitri Rizvi [facility] n [id number] 00:00:00 00:00:00 Shanice M. Shanice [facility] [place][note 2] Oncology Oncology [facility] 2019-07-01 2019-07-01 Appointment [facility] [id number] 15:30:00 15:30:00 ; Gallito Hoyt 2019-06-16 2019-06-16 Dmitri Simon [facility] 2 [id number] 00:00:00 00:00:00 Talishagualberto Laineza [facility] [place][note 2] Oncology Oncology [facility] 2019-05-26 2019-05-26 Outpatient Felipe Karmenabi n [id number] 00:00:00 00:00:00 [facility] [place][note 2] Oncology Oncology [facility] 2019-04-20 2019-04-20 Outpatient Felipe Karmenabi n [id number] 00:00:00 00:00:00 [facility] [place][note 2] Oncology Oncology [facility] 2019-02-06 2019-02-06 Outpatient Felipe Karmenabi n [id number] 00:00:00 00:00:00 [facility] [place][note 2] Oncology Oncology [facility] 2019-02-05 2019-02-05 Outpatient [facility] Karmen n [id number] 00:00:00 00:00:00 [facility] 2018-11-26 2018-11-26 Outpatient Dexter Krishna [facility] [id number] 15:45:00 15:45:00 Children [id number] and [id number] [facility], 2018-10-31 2018-10-31 Outpatient [facility] Karmen n [id number] 00:00:00 00:00:00 [facility] 2018-10-13 2018-10-13 Outpatient [facility] n [id number] 00:00:00 00:00:00 [facility] 2018-07-31 2018-07-31 [id number] 15:00:00 15:00:00 ; Gallito Hoyt 2018-07-13 2018-07-13 Outpatient [facility] n [id number] 00:00:00 00:00:00 [facility] Family History Family Member Diagnosis Comments Start Date Stop Date Mother Family history of Family Health Status Of Mother - Alive Mother Family history of Hyperlipidemia Father Family history of Acute Myocardial Infarction Father Family history of Hypertension Father Family history of Hyperlipidemia Father Family history of Family Health Status Of Father - Alive Immunizations Ordered Immunization Filled Immunization Date Status Commen ts Refusal Name Name Reason Influenza, 2018-07-07 Completed injectable, MDCK, 18:04:00 preservative free, quadrivalent Tdap 2014-08-17 Completed 14:40:02 influenza, seasonal, 2012-06-03 Completed injectable 00:00:00 zoster live - vial(s) Unknown Completed of 1 pneumococcal Unknown Completed polysaccharide PPV23 Plan of Treatment Planned Activity Planned Date Details Comments Future Appointment 2020-10-25 10:00:00 Carina Mendoza Mavd; , [place] [address] Future Appointment 2020-10-18 10:30:00 Nurse, Carina Jackson ; , [place] [address] Social History Smoking Status Start Date Stop Date Never smoked tobacco (finding) Social History Observation Description Sex Female Vital Signs Vital Name Observation Time Observation Value Comments Body Weight 2020-08-15 00:00:00 153 [lb_av] BP Diastolic 2020-08-15 00:00:00 80 mm[Hg] Height 2020-08-15 00:00:00 58 [in_i] BMI (Body Mass Index) 2020-08-15 00:00:00 32 kg/m2 BP Systolic 2020-08-15 00:00:00 122 mm[Hg] BP Diastolic 2020-07-25 00:00:00 74 mm[Hg] Height 2020-07-25 00:00:00 58 [in_i] BMI (Body Mass Index) 2020-07-25 00:00:00 32.1 kg/m2 BP Systolic 2020-07-25 00:00:00 113 mm[Hg] Body Weight 2020-07-25 00:00:00 153.6 [lb_av] Systolic blood pressure 2020-08-15 08:40:00 122 mm[Hg] Loca tion: LUE; Position: Sittin g Diastolic blood pressure 2020-08-15 08:40:00 70 mm[Hg] Loc ation: LUE; Position: Sittin g Weight 2020-08-15 08:40:00 150 [lb_av] Body mass index (BMI) 2020-08-15 08:40:00 30.3 kg/m2 [Ratio] Body height 2020-08-15 08:40:00 59 [in_us] Heart Rate 2020-08-15 08:40:00 66 /min O2 SAT 2020-08-15 08:40:00 97 % BMI 2020-07-12 12:41:00 31.9400 BP bhatti 2020-07-12 12:41:00 76.0000 mm[Hg] Bdy height 2020-07-12 12:41:00 58.0000 [in_i] SaO2% BldA PulseOx 2020-07-12 12:41:00 98.0000 % Heart rate 2020-07-12 12:41:00 70.0000 /min Resp rate 2020-07-12 12:41:00 18.0000 /min BP sys 2020-07-12 12:41:00 116.0000 mm[Hg] Body temperature 2020-07-12 12:41:00 97.7000 [degF] Weight 2020-07-12 12:41:00 152.8000 [lb_av] Resp rate 2020-07-05 12:39:02 18.0000 /min BP sys 2020-07-05 12:39:02 108.0000 mm[Hg] Body temperature 2020-07-05 12:39:02 97.6000 [degF] Weight 2020-07-05 12:39:02 153.6000 [lb_av] BMI 2020-07-05 12:39:02 32.1000 BP bhatti 2020-07-05 12:39:02 58.0000 mm[Hg] Bdy height 2020-07-05 12:39:02 58.0000 [in_i] SaO2% BldA PulseOx 2020-07-05 12:39:02 98.0000 % Heart rate 2020-07-05 12:39:02 77.0000 /min Bdy height 2020-06-17 14:39:53 58.0000 [in_i] Body temperature 2020-06-17 14:39:53 98.2000 [degF] BMI 2020-03-18 13:52:45 32.3500 BP bhatti 2020-03-18 13:52:45 73.0000 mm[Hg] Bdy height 2020-03-18 13:52:45 58.0000 [in_i] Heart rate 2020-03-18 13:52:45 71.0000 /min Resp rate 2020-03-18 13:52:45 16.0000 /min BP sys 2020-03-18 13:52:45 116.0000 mm[Hg] Body temperature 2020-03-18 13:52:45 97.6000 [degF] Weight 2020-03-18 13:52:45 154.8000 [lb_av] BMI 2019-09-15 10:45:36 31.1000 BP bhatti 2019-09-15 10:45:36 82.0000 mm[Hg] Bdy height 2019-09-15 10:45:36 58.0000 [in_i] Heart rate 2019-09-15 10:45:36 82.0000 /min Resp rate 2019-09-15 10:45:36 12.0000 /min BP sys 2019-09-15 10:45:36 130.0000 mm[Hg] Body temperature 2019-09-15 10:45:36 98.0000 [degF] Weight 2019-09-15 10:45:36 148.8000 [lb_av] BMI 2019-06-16 13:16:19 31.4800 BP bhatti 2019-06-16 13:16:19 81.0000 mm[Hg] Bdy height 2019-06-16 13:16:19 58.0000 [in_i] SaO2% BldA PulseOx 2019-06-16 13:16:19 97.0000 % Heart rate 2019-06-16 13:16:19 87.0000 /min Resp rate 2019-06-16 13:16:19 18.0000 /min BP sys 2019-06-16 13:16:19 111.0000 mm[Hg] Body temperature 2019-06-16 13:16:19 96.5000 [degF] Weight 2019-06-16 13:16:19 150.6000 [lb_av] Hospital Discharge Instructions NameDatesDetailsInstructions not documented1. Essential hypertension pulse oximetry (PROC) amlodipine 10 mg tablet 2. Diabetes mellitus3. Hyperlipidemia simvastatin 20 mg tablet 4. Elevated liver enzymes level 5. Hypothyroidism 6. Iron deficiency anemia 7. Vitamin D deficiency 8. Asthma 9. Body mass index 30+ - obesity 10. Screening for malignant neoplasm of breast mammogram screening referral - SCREENING MAMMOGRAM 11. Screening for malignant neoplasm of colon 12. Screening for osteoporosis 13. Depressive disorder DiscussionNote Face to face time spent with patient was 30 min, with >50% of that time spent counseling thepatient, discussing the risk and benefits of treatment and family education Patient educational handouts: No information available.NameDatesDetailsInstructions not documented
== END 2020-09-25 15:28 | disposition home or self-care (01) ==
LOC: ER 10:40
DX: R10.9 Unspecified abdominal pain (principal); M54.9 Dorsalgia, unspecified; R07.81 Pleurodynia; R05 Cough; R06.7 Sneezing; Z88.0 Allergy status to penicillin; Z88.8 Allergy status to other drugs, medicaments and biological substances
CPT/HCPCS: 99285; 96361; 96374; 36415; 83690; 85025; 80053; 81001; 71045; 74177; J1885; J7030